=== PATIENT | male | born 1960 | race Caucasian/White ===

== ENCOUNTER 2017-07-02 08:20 | Inpatient (IN) | payer OTHER ==
[~2017-07-02] VITALS: Ht 167.6 cm; Wt 82.4 kg
[~2017-07-02 08:20] MED LIST: ACTOS45 MG PO; ALPRAZOLAM0.25 M2 PO; AMBIEN10 MG PO; CELEXA20 MG PO; CITALOPRAM HBR20 MG PO; DULCOLAX10 MG PR; ERGOCALCIF50000 UNIT PO; FAMOTIDINE20 MG PO; FLEET ENEMA-AD118 ML PR; FLORANEX CHE1 TABLET PO; FLORASTOR250 MG PO; GLUCOPHAGE1000 MG PO; HUMULIN 70100 UNIT/2 SC; HUMULIN 70100 UNIT/3 SC; LABETALOL HCL200 MG PO; LISINOPRIL2.5 MG PO; METRONIDAZOLE500 MG PO; NORMODYNE,TRAN200 MG PO; NOVOLOG PE100 UNITS/ SC; OXYCODONE-APAP1 EACH PO; PAIN RELIEF650 MG PO; PERCOCET 10/1 TABLET PO; PHILLIPS'400 MG/5 M PO; TRAMADOL HCL50 MG PO; TYLENOL REGULA325 MG PO; ULTRAM50 MG PO; VANCOCIN HCL125 MG PO; VITAMIN D50000 UNI4 PO; XANAX0.25 MG PO; ZESTRIL2.5 MG PO; ZOLPIDEM TARTRAT5 MG PO
[2017-07-02 08:55] LABS: HEMATOCRIT 31.9 % (38.0-50.0); MCH 30.3 PG (29.0-34.0); MCHC 33.5 G/DL (30.0-36.0); MCV 90.4 FL (86-99); MEAN PLAT.VOLUME 10.2 uM^3 (9.0-12.4); PLATELET COUNT 229 K/uL (156-360); RBC DIS.WIDTH-CV 13.9 % (11.8-14.6); RBC DIS.WIDTH-SD 46.4 % (39-53); RED BLOOD COUNT 3.53 M/uL (4.00-5.50); WHITE BLOOD COUNT 9.6 K/uL (4.1-10.2)
[2017-07-02 09:22] LABS: CHLORIDE 114 mEq/L (99-109); POTASSIUM 4.1 mEq/L (3.7-5.4); SODIUM 143 mEq/L (136-147)
[2017-07-02 09:25] LABS: GLUCOSE 204 mg/dL (70-99)
[2017-07-02 09:26] LABS: ANION GAP 9 MEQ/L (2-14)
[2017-07-02 09:27] LABS: TOTAL BILIRUBIN 0.6 mg/dL (0.0-1.0)
[2017-07-02 09:28] LABS: ALKALINE PHOSPHATASE 81 IU/L (3-129); GFR ESTIMATE (CALCULATED) 31 mL/min/
[2017-07-02 09:29] LABS: UREA NITROGEN (BUN) 42 mg/dL (9-23)
[2017-07-02 14:43] LABS: POINT-OF-CARE METER ID UU13113675
[2017-07-02 14:46] LABS: TOTAL CK 2645 IU/L (1-294)
[2017-07-02 14:49] LABS: CREATINE KINASE 2645 IU/L (1-294)
[2017-07-02 14:59] LABS: CK-MB 7.6 ng/mL (0.0-4.9)
[2017-07-02 16:33] LABS: POINT-OF-CARE METER ID UU14117124
[2017-07-02 16:38] VITALS: BP 102/74
[2017-07-02 19:52] VITALS: BP 119/62
[2017-07-02 22:02] LABS: POINT-OF-CARE METER ID UU14117124
[2017-07-03] VITALS (7 sets, daily range): BP systolic 109–141; BP diastolic 60–73
[2017-07-03 07:14] LABS: ANION GAP 7 MEQ/L (2-14); CHLORIDE 116 MEQ/L (99-109); GFR ESTIMATE (CALCULATED) 44 mL/min/; GLUCOSE 179 mg/dL (70-99); POTASSIUM 4.1 MEQ/L (3.7-5.4); SAMPLE HEMOLYSIS CHECK 0; SAMPLE ICTERIC CHECK 0; SAMPLE LIPEMIA CHECK 0; SODIUM 145 MEQ/L (136-147); UREA NITROGEN (BUN) 25 mg/dL (9-23)
[2017-07-03 10:52] LABS: CREATINE KINASE 2290 IU/L (1-294)
[2017-07-03 16:56] LABS: POINT-OF-CARE METER ID UU14117124
[2017-07-04 03:07] VITALS: BP 143/84
[2017-07-04 06:44] LABS: HEMATOCRIT 29.4 % (38.0-50.0); MCH 30.3 PG (29.0-34.0); MCHC 33.3 G/DL (30.0-36.0); MEAN PLAT.VOLUME 10.5 uM^3 (9.0-12.4); PLATELET COUNT 215 K/uL (156-360); RBC DIS.WIDTH-SD 47.2 % (39-53); RED BLOOD COUNT 3.23 M/uL (4.00-5.50); WHITE BLOOD COUNT 6.5 K/uL (4.1-10.2)
[2017-07-04 07:00] VITALS: BP 151/76
[2017-07-04 07:24] LABS: ANION GAP 7 MEQ/L (2-14); CHLORIDE 112 MEQ/L (99-109); CREATINE KINASE 1618 IU/L (1-294); GFR ESTIMATE (CALCULATED) 55 mL/min/; GLUCOSE 117 mg/dL (70-99); POTASSIUM 3.9 MEQ/L (3.7-5.4); SAMPLE HEMOLYSIS CHECK 0; SAMPLE ICTERIC CHECK 0; SAMPLE LIPEMIA CHECK 0; SODIUM 142 MEQ/L (136-147); UREA NITROGEN (BUN) 19 mg/dL (9-23)
[2017-07-04 07:55] LABS: ADD MIUA? YES; BILIRUBIN NEGATIVE; BLOOD MODERATE; COLOR YELLOW ((YELLOW)); GLUCOSE (STRIP) NEGATIVE; KETONES NEGATIVE; LEUKOCYTES NEGATIVE; NITRITE NEGATIVE; PROTEIN (STRIP) NEGATIVE; SPECIFIC GRAVITY 1.013 (1.000-1.030); UROBILINOGEN 0.2 MG/DL (0.2-1.0)
[2017-07-04 08:08] LABS: BACTERIA NONE SEEN /HPF; EPITHELIAL CELLS NONE SEEN /HPF; MUCUS NONE SEEN /LPF; RED BLOOD CELLS 0-5 /HPF (0-5); WHITE BLOOD CELLS 0-5 /HPF (0-5)
[2017-07-04] MEDS ORDERED: MORPHINE SULFAT15 M1 PO (14:08)
[2017-07-04] MEDS ORDERED: GABAPENTIN300 MG PO (14:08)
[2017-07-04] MEDS ORDERED: LABETALOL HCL200 MG PO (14:09)
[2017-07-04] MEDS ORDERED: OXYCODONE HCL15 MG PO (14:09)
[2017-07-04] MEDS ORDERED: AMARYL1 MG PO (14:10)
[2017-07-04 15:23] VITALS: BP 131/73
[2017-07-04 21:39] LABS: POINT-OF-CARE METER ID UU14208753
[2017-07-04 23:46] VITALS: BP 148/82
[2017-07-05 06:08] LABS: HEMATOCRIT 26.9 % (38.0-50.0); MCV 89.4 FL (86-99)
[2017-07-05 06:36] LABS: POINT-OF-CARE METER ID UU14188577
[2017-07-05 06:43] LABS: ANION GAP 7 MEQ/L (2-14); CHLORIDE 110 MEQ/L (99-109); CREATINE KINASE 947 IU/L (1-294); GFR ESTIMATE (CALCULATED) > 59 mL/min/; GLUCOSE 114 mg/dL (70-99); POTASSIUM 3.8 MEQ/L (3.7-5.4); SAMPLE HEMOLYSIS CHECK 0; SAMPLE ICTERIC CHECK 0; SAMPLE LIPEMIA CHECK 0; SODIUM 142 MEQ/L (136-147); UREA NITROGEN (BUN) 13 mg/dL (9-23)
[2017-07-05 07:36] VITALS: BP 141/80
[2017-07-05 11:42] LABS: POINT-OF-CARE METER ID UU14117124
[2017-07-05 15:44] VITALS: BP 143/66
[2017-07-05 16:23] LABS: POINT-OF-CARE METER ID UU14208753
[2017-07-05 19:28] VITALS: BP 127/73
[2017-07-05 21:54] LABS: POINT-OF-CARE METER ID UU14188577
[2017-07-05 23:10] VITALS: BP 126/79
[2017-07-06 03:41] VITALS: BP 133/82
[2017-07-06 07:10] LABS: HEMATOCRIT 29.5 % (38.0-50.0); MCH 31.1 PG (29.0-34.0); MCHC 33.9 G/DL (30.0-36.0); MCV 91.6 FL (86-99); MEAN PLAT.VOLUME 10.2 uM^3 (9.0-12.4); PLATELET COUNT 259 K/uL (156-360); RBC DIS.WIDTH-CV 14.1 % (11.8-14.6); RBC DIS.WIDTH-SD 47.8 % (39-53); RED BLOOD COUNT 3.22 M/uL (4.00-5.50); WHITE BLOOD COUNT 5.4 K/uL (4.1-10.2)
[2017-07-06 08:50] VITALS: BP 127/79
[2017-07-06] MEDS ORDERED: CITALOPRAM HBR10 MG PO (11:37)
[2017-07-06] MEDS ORDERED: NICOTINE PATCH1 EAC1 TD (11:37)
[2017-07-06] MEDS ORDERED: LOVENOX40 MG/0.4 SC (11:42)
[2017-07-06 16:37] VITALS: BP 116/75
== END 2017-07-06 18:37 | DRG 560 ==
LOC: EME 08:20 → EDOF 13:06 → 3EAST 13:06 → ENRESERV 13:15 → 3EAST 15:24
PROVIDERS: Hospitalist; Internal Medicine; Nurse Practitioner Family; Physician Assistant
PROC: 0SW9XJZ Revision of Synthetic Substitute in Right Hip Joint, External Approach (ICD-10-PCS; principal; 2017-07-02)
DX: T84.020A Dislocation of internal right hip prosthesis, initial encounter (principal); N17.9 Acute kidney failure, unspecified; M62.82 Rhabdomyolysis; W01.0XXA Fall on same level from slipping, tripping and stumbling without subsequent striking against object, initial encounter; Y92.008 Other place in unspecified non-institutional (private) residence as the place of occurrence of the external cause; I12.9 Hypertensive chronic kidney disease with stage 1 through stage 4 chronic kidney disease, or unspecified chronic kidney disease; N18.3 Chronic kidney disease, stage 3 (moderate); E11.22 Type 2 diabetes mellitus with diabetic chronic kidney disease; D64.9 Anemia, unspecified; F41.8 Other specified anxiety disorders; F31.9 Bipolar disorder, unspecified; J44.9 Chronic obstructive pulmonary disease, unspecified; K21.9 Gastro-esophageal reflux disease without esophagitis; G89.29 Other chronic pain; G40.909 Epilepsy, unspecified, not intractable, without status epilepticus; K59.00 Constipation, unspecified; D35.01 Benign neoplasm of right adrenal gland; F19.10 Other psychoactive substance abuse, uncomplicated; K64.8 Other hemorrhoids; Z96.641 Presence of right artificial hip joint; Z79.891 Long term (current) use of opiate analgesic
CPT/HCPCS: 70450; 71010; 73501; 73522; 74176; 76000; 80048; 80053; 81003; 82550; 82553; 82948; 85014; 85018; 85027; 93005; 97530 GO; 99281; 99285; J1644; J1815; J2270; J2405; J7030; J7120; S0028

== ENCOUNTER 2017-07-31 16:37 | Inpatient (IN) | payer OTHER ==
[~2017-07-31] VITALS: Ht 167.6 cm; Wt 82.3 kg
[~2017-07-31 16:37] MED LIST changes: +AMARYL1 MG PO; +CITALOPRAM HBR10 MG PO; +GABAPENTIN300 MG PO; +LOVENOX40 MG/0.4 SC; +MORPHINE SULFAT15 M1 PO; +NICOTINE PATCH1 EAC1 TD; +OXYCODONE HCL15 MG PO
[2017-07-31 17:09] LABS: POINT-OF-CARE METER ID UU13113702
[2017-07-31 19:14] LABS: HEMATOCRIT 30.7 % (38.0-50.0); MCH 30.1 PG (29.0-34.0); MCHC 32.6 G/DL (30.0-36.0); MCV 92.5 FL (86-99); MEAN PLAT.VOLUME 10.5 uM^3 (9.0-12.4); PLATELET COUNT 237 K/uL (156-360); RBC DIS.WIDTH-CV 15.2 % (11.8-14.6); RED BLOOD COUNT 3.32 M/uL (4.00-5.50); WHITE BLOOD COUNT 6.9 K/uL (4.1-10.2)
[2017-07-31 19:25] LABS: CHLORIDE 115 mEq/L (99-109); POTASSIUM 4.7 mEq/L (3.7-5.4); SODIUM 144 mEq/L (136-147)
[2017-07-31 19:27] LABS: GLUCOSE 114 mg/dL (70-99)
[2017-07-31 19:28] LABS: ANION GAP 12 MEQ/L (2-14)
[2017-07-31 19:30] LABS: SERUM ETHYL ALCOHOL < 10 mg/dL
[2017-07-31 19:31] LABS: GFR ESTIMATE (CALCULATED) 11 mL/min/
[2017-07-31 19:33] LABS: UREA NITROGEN (BUN) 89 mg/dL (9-23)
[2017-07-31 19:34] LABS: SALICYLATE < 5.0 MG/DL (15-30)
[2017-07-31 19:47] LABS: POINT-OF-CARE METER ID UU13113702
[2017-07-31 20:51] LABS: POINT-OF-CARE METER ID UU13113702
[2017-07-31 22:21] LABS: CREATINE KINASE 2870 IU/L (1-294)
[2017-07-31 22:50] LABS: POINT-OF-CARE METER ID UU13113702
[2017-08-01] VITALS (7 sets, daily range): BP systolic 116–169; BP diastolic 69–97
[2017-08-01 00:37] LABS: CHLORIDE 116 mEq/L (99-109); POTASSIUM 4.4 mEq/L (3.7-5.4); SODIUM 144 mEq/L (136-147)
[2017-08-01 00:39] LABS: GLUCOSE 100 mg/dL (70-99)
[2017-08-01 00:40] LABS: ANION GAP 11 MEQ/L (2-14)
[2017-08-01 00:41] LABS: TOTAL BILIRUBIN 0.5 mg/dL (0.0-1.0)
[2017-08-01 00:42] LABS: ALKALINE PHOSPHATASE 82 IU/L (3-129)
[2017-08-01 00:43] LABS: GFR ESTIMATE (CALCULATED) 12 mL/min/
[2017-08-01 00:44] LABS: DIRECT BILIRUBIN 0.2 mg/dL (0.0-0.3); UREA NITROGEN (BUN) 79 mg/dL (9-23)
[2017-08-01 00:46] LABS: URIC ACID 11.6 mg/dL (3.1-9.2)
[2017-08-01 00:55] LABS: POINT-OF-CARE METER ID UU14314088
[2017-08-01 00:56] LABS: TROP-I INTERPRETATION NEGATIVE; TROPONIN-I 0.02 ng/mL (0.0-0.30)
[2017-08-01 01:11] LABS: ADD MIUA? YES; BILIRUBIN NEGATIVE; BLOOD MODERATE; COLOR YELLOW ((YELLOW)); GLUCOSE (STRIP) NEGATIVE; KETONES NEGATIVE; LEUKOCYTES NEGATIVE; NITRITE NEGATIVE; PROTEIN (STRIP) NEGATIVE; SPECIFIC GRAVITY 1.012 (1.000-1.030); UROBILINOGEN 0.2 MG/DL (0.2-1.0)
[2017-08-01 01:15] LABS: BACTERIA 1+ /HPF; EPITHELIAL CELLS RARE /HPF; MUCUS TRACE /LPF; RED BLOOD CELLS 0-5 /HPF (0-5); UCUL ADDED? NO; WHITE BLOOD CELLS 0-5 /HPF (0-5)
[2017-08-01 01:55] LABS: BASE EXCESS -7.2 mEq/L (-3 to +3); BICARBONATE 18.8 mEq/L (22-26); CARBOXY HGB 1.4 % (0-5); COMMENTS - BLOOD GASES C+A+; METHEMOGLOBIN 1.2 % (0-1.5); PCO2 39 mm Hg (35-45); PO2 70 mm Hg (80-100); SITE RR
[2017-08-01 01:56] LABS: DEVICE ROOM AIR; TOTAL RESP RATE 16 resp/min; pH 7.29 (7.35-7.45)
[2017-08-01 02:13] LABS: POINT-OF-CARE METER ID UU14314088
[2017-08-01 02:35] LABS: AMPHETAMINES QUANT VALUE 0 NG/ML; BARBITUATES QUANT VALUE 0 NG/ML; BENZODIAZEPINES QUANT VALUE 0 NG/ML; BENZODIAZEPINES, URINE SCREEN Negative (200 ng/mL); MARIJUANA QUANT VALUE 0 NG/ML; PHENCYCLIDINE QUANT VALUE 0 NG/ML
[2017-08-01 04:39] LABS: POINT-OF-CARE METER ID UU14314088
[2017-08-01 05:35] LABS: HEMATOCRIT 27.7 % (38.0-50.0); MCH 31.6 PG (29.0-34.0); MCHC 33.2 G/DL (30.0-36.0); MCV 95.2 FL (86-99); MEAN PLAT.VOLUME 10.6 uM^3 (9.0-12.4); PLATELET COUNT 220 K/uL (156-360); RBC DIS.WIDTH-CV 15.4 % (11.8-14.6); RBC DIS.WIDTH-SD 53.8 % (39-53); RED BLOOD COUNT 2.91 M/uL (4.00-5.50); WHITE BLOOD COUNT 5.9 K/uL (4.1-10.2)
[2017-08-01 06:21] LABS: ANION GAP 12 MEQ/L (2-14); CHLORIDE 117 MEQ/L (99-109); GFR ESTIMATE (CALCULATED) 14 mL/min/; GLUCOSE 73 mg/dL (70-99); POTASSIUM 4.5 MEQ/L (3.7-5.4); SAMPLE HEMOLYSIS CHECK 0; SAMPLE ICTERIC CHECK 0; SAMPLE LIPEMIA CHECK 0; SODIUM 147 MEQ/L (136-147); UREA NITROGEN (BUN) 76 mg/dL (9-23)
[2017-08-01 06:25] LABS: CREATINE KINASE 1666 IU/L (1-294)
[2017-08-01 06:33] LABS: POINT-OF-CARE METER ID UU14314088
[2017-08-01 06:54] LABS: POINT-OF-CARE METER ID UU13113698
[2017-08-01 07:14] LABS: POINT-OF-CARE METER ID UU14314088
[2017-08-01 07:32] LABS: POINT-OF-CARE METER ID UU14174216
[2017-08-01 08:20] LABS: POINT-OF-CARE METER ID UU14174216; POINT-OF-CARE USER ID ENVKC36
[2017-08-01 10:23] LABS: POINT-OF-CARE METER ID UU14174216; POINT-OF-CARE USER ID ENVKC36
[2017-08-01 12:26] LABS: POINT-OF-CARE METER ID UU14314088; POINT-OF-CARE USER ID ENVKC36
[2017-08-01 12:33] LABS: POINT-OF-CARE METER ID UU13113702
[2017-08-01 14:27] LABS: POINT-OF-CARE METER ID UU14174216; POINT-OF-CARE USER ID ENVKC36
[2017-08-01 18:13] LABS: POINT-OF-CARE METER ID UU14174216
[2017-08-02 00:29] LABS: POINT-OF-CARE METER ID UU14174216
[2017-08-02 04:01] VITALS: BP 160/84
[2017-08-02 05:44] LABS: BASOPHIL COUNT 0.1 K/uL (0-0.1); EOSINOPHIL COUNT 0.3 K/uL (0-0.3); IMMATURE GRANULOCYTE (%) 0.2 % (0.0-0.7); INSTRUMENT ABS NEUTROPHIL CT 2.6 K/uL; LYMPHOCYTE COUNT 1.8 K/uL (1.0-2.8); MCH 29.9 PG (29.0-34.0); MCHC 32.2 G/DL (30.0-36.0); MCV 92.8 FL (86-99); MEAN PLAT.VOLUME 10.7 uM^3 (9.0-12.4); MONOCYTE (%) 10.4 % (3-12); MONOCYTE COUNT 0.6 K/uL (0-0.8); NEUTROPHIL (%) 48.8 % (45-76); NEUTROPHIL COUNT 2.6 K/uL (1.8-6.4); PLATELET COUNT 216 K/uL (156-360); RBC DIS.WIDTH-CV 15.1 % (11.8-14.6); RBC DIS.WIDTH-SD 50.9 % (39-53); RED BLOOD COUNT 2.91 M/uL (4.00-5.50); WHITE BLOOD COUNT 5.4 K/uL (4.1-10.2)
[2017-08-02 06:06] LABS: POINT-OF-CARE METER ID UU14174216
[2017-08-02 06:36] LABS: ALKALINE PHOSPHATASE 57 IU/L (3-129); ANION GAP 8 MEQ/L (2-14); CHLORIDE 117 MEQ/L (99-109); CREATINE KINASE 746 IU/L (1-294); GFR ESTIMATE (CALCULATED) 18 mL/min/; MAGNESIUM 1.9 mg/dl (1.3-2.7); POTASSIUM 4.3 MEQ/L (3.7-5.4); SAMPLE HEMOLYSIS CHECK 0; SAMPLE ICTERIC CHECK 0; SAMPLE LIPEMIA CHECK 0; SODIUM 146 MEQ/L (136-147); TOTAL BILIRUBIN 0.7 MG/DL (0.0-1.0); UREA NITROGEN (BUN) 64 mg/dL (9-23)
[2017-08-02 06:37] LABS: GLUCOSE 128 mg/dL (70-99)
[2017-08-02 07:05] VITALS: BP 163/81
[2017-08-02 11:12] VITALS: BP 145/85
[2017-08-02 15:30] VITALS: BP 160/89
[2017-08-02 16:20] LABS: POINT-OF-CARE METER ID UU14314088
[2017-08-02 19:27] VITALS: BP 169/81
[2017-08-02 21:09] LABS: POINT-OF-CARE METER ID UU14174216
[2017-08-02 23:45] VITALS: BP 143/77
[2017-08-03 03:28] VITALS: BP 162/78
[2017-08-03 05:45] LABS: BASOPHIL COUNT 0.1 K/uL (0-0.1); EOSINOPHIL (%) 3.3 % (0-5); EOSINOPHIL COUNT 0.2 K/uL (0-0.3); IMMATURE GRANULOCYTE (%) 0.4 % (0.0-0.7); INSTRUMENT ABS NEUTROPHIL CT 3.2 K/uL; LYMPHOCYTE COUNT 1.4 K/uL (1.0-2.8); MCHC 35.6 G/DL (30.0-36.0); MEAN PLAT.VOLUME 10.5 uM^3 (9.0-12.4); MONOCYTE (%) 11.1 % (3-12); MONOCYTE COUNT 0.6 K/uL (0-0.8); NEUTROPHIL COUNT 3.2 K/uL (1.8-6.4); PLATELET COUNT 220 K/uL (156-360); RBC DIS.WIDTH-CV 14.6 % (11.8-14.6); WHITE BLOOD COUNT 5.5 K/uL (4.1-10.2)
[2017-08-03 06:16] LABS: ANION GAP 11 MEQ/L (2-14); CHLORIDE 112 MEQ/L (99-109); CREATINE KINASE 356 IU/L (1-294); GFR ESTIMATE (CALCULATED) 27 mL/min/; GLUCOSE 217 mg/dL (70-99); POTASSIUM 3.7 MEQ/L (3.7-5.4); SAMPLE HEMOLYSIS CHECK 0; SAMPLE ICTERIC CHECK 0; SAMPLE LIPEMIA CHECK 0; SODIUM 146 MEQ/L (136-147); UREA NITROGEN (BUN) 44 mg/dL (9-23)
[2017-08-03 07:25] VITALS: BP 150/82
[2017-08-03 07:44] LABS: POINT-OF-CARE METER ID UU14174216
[2017-08-03 11:10] VITALS: BP 140/80
[2017-08-03 11:34] LABS: POINT-OF-CARE METER ID UU14314088
[2017-08-03 16:02] VITALS: BP 160/80
[2017-08-03 16:06] LABS: POINT-OF-CARE METER ID UU14314088
[2017-08-03 20:30] VITALS: BP 150/80
[2017-08-03 21:34] LABS: POINT-OF-CARE METER ID UU13113781
[2017-08-04] VITALS (7 sets, daily range): BP systolic 125–176; BP diastolic 76–87
[2017-08-04 05:29] LABS: BASOPHIL COUNT 0.1 K/uL (0-0.1); EOSINOPHIL COUNT 0.2 K/uL (0-0.3); HEMATOCRIT 29.2 % (38.0-50.0); IMMATURE GRANULOCYTE (%) 0.3 % (0.0-0.7); INSTRUMENT ABS NEUTROPHIL CT 4.7 K/uL; LYMPHOCYTE COUNT 1.9 K/uL (1.0-2.8); MCH 31.1 PG (29.0-34.0); MCHC 34.6 G/DL (30.0-36.0); MCV 89.8 FL (86-99); MEAN PLAT.VOLUME 10.6 uM^3 (9.0-12.4); MONOCYTE (%) 9.3 % (3-12); MONOCYTE COUNT 0.7 K/uL (0-0.8); NEUTROPHIL (%) 61.9 % (45-76); NEUTROPHIL COUNT 4.7 K/uL (1.8-6.4); PLATELET COUNT 233 K/uL (156-360); RBC DIS.WIDTH-CV 14.1 % (11.8-14.6); RED BLOOD COUNT 3.25 M/uL (4.00-5.50); WHITE BLOOD COUNT 7.5 K/uL (4.1-10.2)
[2017-08-04 05:55] LABS: ANION GAP 13 MEQ/L (2-14); CHLORIDE 106 MEQ/L (99-109); GFR ESTIMATE (CALCULATED) 35 mL/min/; GLUCOSE 138 mg/dL (70-99); POTASSIUM 3.7 MEQ/L (3.7-5.4); SAMPLE HEMOLYSIS CHECK 0; SAMPLE ICTERIC CHECK 0; SAMPLE LIPEMIA CHECK 0; SODIUM 143 MEQ/L (136-147); UREA NITROGEN (BUN) 34 mg/dL (9-23)
[2017-08-04 08:32] LABS: POINT-OF-CARE METER ID UU14174216
[2017-08-04 11:52] LABS: POINT-OF-CARE METER ID UU14314088
[2017-08-04 16:15] LABS: POINT-OF-CARE METER ID UU14314088
[2017-08-04 21:20] LABS: POINT-OF-CARE METER ID UU14188577
[2017-08-05 00:31] VITALS: BP 133/76
[2017-08-05 04:22] VITALS: BP 142/82
[2017-08-05 06:07] LABS: POINT-OF-CARE METER ID UU14188577
[2017-08-05 06:29] LABS: BASOPHIL COUNT 0.1 K/uL (0-0.1); EOSINOPHIL (%) 3.4 % (0-5); EOSINOPHIL COUNT 0.3 K/uL (0-0.3); HEMATOCRIT 29.8 % (38.0-50.0); IMMATURE GRANULOCYTE (%) 0.4 % (0.0-0.7); INSTRUMENT ABS NEUTROPHIL CT 4.1 K/uL; LYMPHOCYTE COUNT 2.3 K/uL (1.0-2.8); MCH 31.3 PG (29.0-34.0); MCHC 34.9 G/DL (30.0-36.0); MCV 89.8 FL (86-99); MEAN PLAT.VOLUME 10.8 uM^3 (9.0-12.4); MONOCYTE (%) 7.9 % (3-12); MONOCYTE COUNT 0.6 K/uL (0-0.8); NEUTROPHIL (%) 56.2 % (45-76); NEUTROPHIL COUNT 4.1 K/uL (1.8-6.4); PLATELET COUNT 222 K/uL (156-360); RBC DIS.WIDTH-SD 45.3 % (39-53); RED BLOOD COUNT 3.32 M/uL (4.00-5.50); WHITE BLOOD COUNT 7.4 K/uL (4.1-10.2)
[2017-08-05 06:56] LABS: ANION GAP 10 MEQ/L (2-14); CHLORIDE 106 MEQ/L (99-109); GFR ESTIMATE (CALCULATED) 37 mL/min/; GLUCOSE 166 mg/dL (70-99); POTASSIUM 4.1 MEQ/L (3.7-5.4); SAMPLE HEMOLYSIS CHECK 0; SAMPLE ICTERIC CHECK 0; SAMPLE LIPEMIA CHECK 0; SODIUM 141 MEQ/L (136-147); UREA NITROGEN (BUN) 35 mg/dL (9-23)
[2017-08-05 07:53] VITALS: BP 143/85
[2017-08-05 11:45] LABS: POINT-OF-CARE METER ID UU14208753
== END 2017-08-05 13:40 | disposition home health service (06) | DRG 917 ==
LOC: EME 16:37 → 4EAST 23:14 → EDOF 23:14 → ENRESERV 23:19 → 4EAST 08-01 00:23 → ENRESERV 08-04 15:57 → 3EAST 08-04 17:16
PROVIDERS: Emergency Medicine; Hospitalist; Internal Medicine; Internal Medicine Nephrology
DX: T40.2X1A Poisoning by other opioids, accidental (unintentional), initial encounter (principal); N17.9 Acute kidney failure, unspecified; M62.82 Rhabdomyolysis; F31.9 Bipolar disorder, unspecified; E87.2 Acidosis; G40.909 Epilepsy, unspecified, not intractable, without status epilepticus; F11.20 Opioid dependence, uncomplicated; F17.200 Nicotine dependence, unspecified, uncomplicated; E11.649 Type 2 diabetes mellitus with hypoglycemia without coma; J44.9 Chronic obstructive pulmonary disease, unspecified; G92 Toxic encephalopathy; E86.0 Dehydration; D64.9 Anemia, unspecified; I12.9 Hypertensive chronic kidney disease with stage 1 through stage 4 chronic kidney disease, or unspecified chronic kidney disease; E11.22 Type 2 diabetes mellitus with diabetic chronic kidney disease; N18.3 Chronic kidney disease, stage 3 (moderate); G89.29 Other chronic pain; Z96.641 Presence of right artificial hip joint; R29.6 Repeated falls; K21.9 Gastro-esophageal reflux disease without esophagitis
CPT/HCPCS: 36600; 70450; 71250; 74176; 76770; 80048; 80048 91; 80053; 80076; 80306 90; 81003; 82436; 82550; 82803; 82948; 83735; 83935; 84100; 84133; 84300; 84484; 84550; 85025; 85027; 90686; 93005; 97530 GP; 99281; 99285; G0480; J1644; J1815; J2310; J7030; J7040; J7042

== ENCOUNTER 2017-09-10 13:47 | Inpatient (IN) | payer OTHER ==
[2017-09-10] VITALS (8 sets, daily range): BP systolic 106–158; BP diastolic 76–101
[~2017-09-10] VITALS: Ht 167.6 cm; Wt 94.2 kg
[~2017-09-10 13:47] MED LIST changes: +AUGMENTIN875 MG PO; +GLIMEPIRIDE2 MG PO
[2017-09-10 14:28] LABS: HEMATOCRIT 39.9 % (38.0-50.0); MCH 30.7 PG (29.0-34.0); MCHC 32.6 G/DL (30.0-36.0); MEAN PLAT.VOLUME 9.9 uM^3 (9.0-12.4); PLATELET COUNT 352 K/uL (156-360); RBC DIS.WIDTH-CV 14.9 % (11.8-14.6); WHITE BLOOD COUNT 13.3 K/uL (4.1-10.2)
[2017-09-10 14:34] LABS: CHLORIDE 113 mEq/L (99-109); SODIUM 143 mEq/L (136-147)
[2017-09-10 14:36] LABS: GLUCOSE 221 mg/dL (70-99)
[2017-09-10 14:37] LABS: ANION GAP 18 MEQ/L (2-14)
[2017-09-10 14:40] LABS: GFR ESTIMATE (CALCULATED) 15 mL/min/
[2017-09-10 14:41] LABS: UREA NITROGEN (BUN) 73 mg/dL (9-23)
[2017-09-10 14:43] LABS: MCV 94.3 FL (86-99); RED BLOOD COUNT 4.23 M/uL (4.00-5.50)
[2017-09-10 14:50] LABS: ANION GAP 15 MEQ/L (2-14); CHLORIDE 117 mEq/L (99-109); CREATININE 4.5 mg/dL (0.6-1.3); GLUCOSE 202 mg/dL (70-99); ISTAT DEVICE 359068; POTASSIUM > 6.0 mEq/L (3.7-5.4); SODIUM 141 mEq/L (136-147); UREA NITROGEN (BUN) 72 mg/dL (9-23)
[2017-09-10 14:50] LABS: ANION GAP 17 MEQ/L (2-14); CHLORIDE 118 mEq/L (99-109); CREATININE 4.6 mg/dL (0.6-1.3); GLUCOSE 204 mg/dL (70-99); ISTAT DEVICE 359068; POTASSIUM > 6.0 mEq/L (3.7-5.4); SODIUM 143 mEq/L (136-147); UREA NITROGEN (BUN) 74 mg/dL (9-23)
[2017-09-10 15:03] LABS: POTASSIUM 6.8 mEq/L (3.7-5.4)
[2017-09-10 15:26] LABS: CARBON DIOXIDE (BICARBONATE) 16.5 MEQ/L (20-31)
[2017-09-10 15:34] LABS: POTASSIUM ND MEQ/L (3.7-5.4)
[2017-09-10 15:34] LABS: POTASSIUM ND MEQ/L (3.7-5.4)
[2017-09-10 15:53] LABS: ADD MIUA? YES; BILIRUBIN NEGATIVE; BLOOD LARGE; COLOR YELLOW ((YELLOW)); GLUCOSE (STRIP) NEGATIVE; KETONES 5; LEUKOCYTES NEGATIVE; NITRITE NEGATIVE; PROTEIN (STRIP) 30; SPECIFIC GRAVITY 1.015 (1.000-1.030); UROBILINOGEN 0.2 MG/DL (0.2-1.0)
[2017-09-10 16:11] LABS: CREATINE KINASE 23640 IU/L (1-294)
[2017-09-10 16:14] LABS: AMORPHOUS URATES CRYSTALS 4+; BACTERIA RARE /HPF; CALCIUM OXALATE CRYSTALS FEW /HPF; CASTS NONE SEEN /LPF; CRYSTALS PRESENT; EPITHELIAL CELLS NONE SEEN /HPF; MUCUS NONE SEEN /LPF; RED BLOOD CELLS 0-5 /HPF (0-5); UCUL ADDED? NO; WHITE BLOOD CELLS 0-5 /HPF (0-5)
[2017-09-10] MEDS ORDERED: NALOXONE HC1 MG/1 ML IM (16:32)
[2017-09-10] MEDS ORDERED: OXYCODONE HCL5 MG PO (16:32)
[2017-09-10 19:12] LABS: METH RESISTANT S AUREUS PCR NEGATIVE (NEGATIVE)
[2017-09-10 19:13] LABS: PROBE CHECK PASS; SPECIMEN PROCESSING CONTROL PASS
[2017-09-10 23:48] LABS: CHLORIDE 119 mEq/L (99-109); SODIUM 143 mEq/L (136-147)
[2017-09-10 23:49] LABS: MAGNESIUM 2.4 mg/dL (1.3-2.7)
[2017-09-10 23:50] LABS: GLUCOSE 192 mg/dL (70-99)
[2017-09-10 23:51] LABS: ANION GAP 14 MEQ/L (2-14)
[2017-09-10 23:54] LABS: GFR ESTIMATE (CALCULATED) 15 mL/min/
[2017-09-10 23:55] LABS: UREA NITROGEN (BUN) 75 mg/dL (9-23)
[2017-09-11] VITALS (21 sets, daily range): BP systolic 99–148; BP diastolic 74–100
[2017-09-11 00:59] LABS: POTASSIUM 6.8 mEq/L (3.7-5.4)
[2017-09-11 01:06] LABS: CK-MB 173.3 ng/mL (0.0-4.9); CREATINE KINASE 26941 IU/L (1-294)
[2017-09-11 06:02] LABS: ANION GAP 14 MEQ/L (2-14); CHLORIDE 119 MEQ/L (99-109); GFR ESTIMATE (CALCULATED) 14 mL/min/; GLUCOSE 184 mg/dL (70-99); SAMPLE HEMOLYSIS CHECK 0; SAMPLE ICTERIC CHECK 0; SAMPLE LIPEMIA CHECK 0; SODIUM 145 MEQ/L (136-147); UREA NITROGEN (BUN) 79 mg/dL (9-23)
[2017-09-11 06:37] LABS: CREATINE KINASE 17400 IU/L (1-294)
[2017-09-11 08:45] LABS: BASOPHIL COUNT 0.1 K/uL (0-0.1); EOSINOPHIL (%) 0.3 % (0-5); HEMATOCRIT 32.1 % (38.0-50.0); IMMATURE GRANULOCYTE (%) 0.3 % (0.0-0.7); INSTRUMENT ABS NEUTROPHIL CT 7.1 K/uL; MCH 31.7 PG (29.0-34.0); MCHC 33.3 G/DL (30.0-36.0); MEAN PLAT.VOLUME 10.1 uM^3 (9.0-12.4); MONOCYTE (%) 11.8 % (3-12); MONOCYTE COUNT 1.1 K/uL (0-0.8); NEUTROPHIL (%) 76.6 % (45-76); NEUTROPHIL COUNT 7.1 K/uL (1.8-6.4); PLATELET COUNT 262 K/uL (156-360); RBC DIS.WIDTH-CV 15.1 % (11.8-14.6); RBC DIS.WIDTH-SD 53.2 % (39-53); RED BLOOD COUNT 3.38 M/uL (4.00-5.50); WHITE BLOOD COUNT 9.3 K/uL (4.1-10.2)
[2017-09-11 14:23] LABS: ANION GAP 14 MEQ/L (2-14); CHLORIDE 116 MEQ/L (99-109); GFR ESTIMATE (CALCULATED) 14 mL/min/; GLUCOSE 203 mg/dL (70-99); MAGNESIUM 2.3 mg/dl (1.3-2.7); POTASSIUM 5.7 MEQ/L (3.7-5.4); SAMPLE HEMOLYSIS CHECK 0; SAMPLE ICTERIC CHECK 0; SAMPLE LIPEMIA CHECK 0; SODIUM 145 MEQ/L (136-147); TOTAL CK 16650 IU/L (1-294); UREA NITROGEN (BUN) 86 mg/dL (9-23)
[2017-09-11 14:24] LABS: CREATINE KINASE 16650 IU/L (1-294)
[2017-09-11 14:44] LABS: CK-MB 77.3 ng/mL (0.0-4.9)
[2017-09-11 17:19] LABS: POINT-OF-CARE METER ID UU13113675
[2017-09-11 20:16] LABS: ANION GAP 13 MEQ/L (2-14); CHLORIDE 116 MEQ/L (99-109); GFR ESTIMATE (CALCULATED) 13 mL/min/; GLUCOSE 206 mg/dL (70-99); SAMPLE HEMOLYSIS CHECK 0; SAMPLE ICTERIC CHECK 0; SAMPLE LIPEMIA CHECK 0; SODIUM 144 MEQ/L (136-147); UREA NITROGEN (BUN) 84 mg/dL (9-23)
[2017-09-11 20:19] LABS: POTASSIUM 6.1 MEQ/L (3.7-5.4)
[2017-09-11 23:51] LABS: POINT-OF-CARE METER ID UU14314082; POINT-OF-CARE USER ID PHATLC
[2017-09-12] VITALS (16 sets, daily range): BP systolic 104–138; BP diastolic 63–103
[2017-09-12 04:15] LABS: UR CREATININE CONCENTRATION 49.1 MG/DL
[2017-09-12 05:41] LABS: BASOPHIL COUNT 0.1 K/uL (0-0.1); EOSINOPHIL (%) 1.6 % (0-5); EOSINOPHIL COUNT 0.1 K/uL (0-0.3); HEMATOCRIT 26.5 % (38.0-50.0); IMMATURE GRANULOCYTE (%) 0.2 % (0.0-0.7); INSTRUMENT ABS NEUTROPHIL CT 6.1 K/uL; LYMPHOCYTE COUNT 1.2 K/uL (1.0-2.8); MCH 30.6 PG (29.0-34.0); MCHC 32.8 G/DL (30.0-36.0); MCV 93.3 FL (86-99); MEAN PLAT.VOLUME 10.3 uM^3 (9.0-12.4); MONOCYTE (%) 10.7 % (3-12); MONOCYTE COUNT 0.9 K/uL (0-0.8); NEUTROPHIL (%) 72.4 % (45-76); NEUTROPHIL COUNT 6.1 K/uL (1.8-6.4); PLATELET COUNT 225 K/uL (156-360); RBC DIS.WIDTH-CV 14.9 % (11.8-14.6); RBC DIS.WIDTH-SD 51.5 % (39-53); RED BLOOD COUNT 2.84 M/uL (4.00-5.50); WHITE BLOOD COUNT 8.5 K/uL (4.1-10.2)
[2017-09-12 06:20] LABS: ANION GAP 11 MEQ/L (2-14); CHLORIDE 115 MEQ/L (99-109); GFR ESTIMATE (CALCULATED) 11 mL/min/; GLUCOSE 158 mg/dL (70-99); POTASSIUM 5.3 MEQ/L (3.7-5.4); SAMPLE HEMOLYSIS CHECK 0; SAMPLE ICTERIC CHECK 0; SAMPLE LIPEMIA CHECK 0; SODIUM 144 MEQ/L (136-147); UREA NITROGEN (BUN) 87 mg/dL (9-23)
[2017-09-12 12:01] LABS: POINT-OF-CARE METER ID UU14314083
[2017-09-12 12:58] LABS: ANION GAP 12 MEQ/L (2-14); CHLORIDE 117 MEQ/L (99-109); GFR ESTIMATE (CALCULATED) 10 mL/min/; GLUCOSE 130 mg/dL (70-99); POTASSIUM 5.3 MEQ/L (3.7-5.4); SAMPLE HEMOLYSIS CHECK 0; SAMPLE ICTERIC CHECK 0; SAMPLE LIPEMIA CHECK 0; SODIUM 146 MEQ/L (136-147); UREA NITROGEN (BUN) 93 mg/dL (9-23)
[2017-09-12 17:00] LABS: POINT-OF-CARE METER ID UU14314083
[2017-09-12 18:37] LABS: POINT-OF-CARE METER ID UU13113675
[2017-09-12 20:08] LABS: ANION GAP 13 MEQ/L (2-14); CHLORIDE 116 MEQ/L (99-109); POTASSIUM 5.6 MEQ/L (3.7-5.4); SAMPLE HEMOLYSIS CHECK 0; SAMPLE ICTERIC CHECK 0; SAMPLE LIPEMIA CHECK 0; SODIUM 145 MEQ/L (136-147)
[2017-09-12 20:15] LABS: GFR ESTIMATE (CALCULATED) 9 mL/min/; GLUCOSE 116 mg/dL (70-99); UREA NITROGEN (BUN) 86 mg/dL (9-23)
[2017-09-13] VITALS (18 sets, daily range): BP systolic 85–133; BP diastolic 53–97
[2017-09-13 06:07] LABS: BASOPHIL COUNT 0.1 K/uL (0-0.1); EOSINOPHIL (%) 3.7 % (0-5); EOSINOPHIL COUNT 0.3 K/uL (0-0.3); HEMATOCRIT 25.8 % (38.0-50.0); IMMATURE GRANULOCYTE (%) 0.3 % (0.0-0.7); INSTRUMENT ABS NEUTROPHIL CT 4.7 K/uL; MCH 31.9 PG (29.0-34.0); MCHC 32.6 G/DL (30.0-36.0); MCV 98.1 FL (86-99); MEAN PLAT.VOLUME 11.2 uM^3 (9.0-12.4); MONOCYTE COUNT 0.7 K/uL (0-0.8); NEUTROPHIL (%) 69.9 % (45-76); NEUTROPHIL COUNT 4.7 K/uL (1.8-6.4); PLATELET COUNT 125 K/uL (156-360); RBC DIS.WIDTH-CV 14.9 % (11.8-14.6); RBC DIS.WIDTH-SD 53.9 % (39-53); RED BLOOD COUNT 2.63 M/uL (4.00-5.50); WHITE BLOOD COUNT 6.8 K/uL (4.1-10.2)
[2017-09-13 07:30] LABS: ALKALINE PHOSPHATASE 203 IU/L (3-129); ANION GAP 16 MEQ/L (2-14); CHLORIDE 113 MEQ/L (99-109); GFR ESTIMATE (CALCULATED) 9 mL/min/; POTASSIUM 5.5 MEQ/L (3.7-5.4); SAMPLE HEMOLYSIS CHECK 0; SAMPLE ICTERIC CHECK 0; SAMPLE LIPEMIA CHECK 0; SODIUM 143 MEQ/L (136-147); TOTAL BILIRUBIN 0.9 MG/DL (0.0-1.0); UREA NITROGEN (BUN) 89 mg/dL (9-23)
[2017-09-13 07:33] LABS: GLUCOSE 75 mg/dL (70-99)
[2017-09-13 10:29] LABS: HPCA INDEX 0.34
[2017-09-13 10:30] LABS: ANTI-HEPATITIS A VIRUS (IGM) Nonreactive; ANTI-HEPATITIS B CORE (IGM) Nonreactive; HAV INDEX 0.13
[2017-09-13 11:54] LABS: CREATINE KINASE 5249 IU/L (1-294)
[2017-09-13 12:09] LABS: POINT-OF-CARE METER ID UU14314083
[2017-09-13 17:37] LABS: POINT-OF-CARE METER ID UU14314083
[2017-09-13 22:20] LABS: POINT-OF-CARE METER ID UU14314082
[2017-09-14] VITALS (24 sets, daily range): BP systolic 111–150; BP diastolic 66–109
[2017-09-14 06:17] LABS: BASOPHIL COUNT 0.1 K/uL (0-0.1); EOSINOPHIL COUNT 0.3 K/uL (0-0.3); HEMATOCRIT 23.9 % (38.0-50.0); IMMATURE GRANULOCYTE (%) 0.3 % (0.0-0.7); INSTRUMENT ABS NEUTROPHIL CT 3.9 K/uL; LYMPHOCYTE COUNT 1.1 K/uL (1.0-2.8); MCH 31.3 PG (29.0-34.0); MCHC 33.9 G/DL (30.0-36.0); MCV 92.3 FL (86-99); MEAN PLAT.VOLUME 10.4 uM^3 (9.0-12.4); MONOCYTE (%) 8.7 % (3-12); MONOCYTE COUNT 0.5 K/uL (0-0.8); NEUTROPHIL (%) 66.8 % (45-76); NEUTROPHIL COUNT 3.9 K/uL (1.8-6.4); PLATELET COUNT 219 K/uL (156-360); RBC DIS.WIDTH-CV 14.5 % (11.8-14.6); RBC DIS.WIDTH-SD 48.7 % (39-53); RED BLOOD COUNT 2.59 M/uL (4.00-5.50); WHITE BLOOD COUNT 5.8 K/uL (4.1-10.2)
[2017-09-14 06:40] LABS: ANION GAP 13 MEQ/L (2-14); CHLORIDE 103 MEQ/L (99-109); GLUCOSE 68 mg/dL (70-99); SAMPLE HEMOLYSIS CHECK 0; SAMPLE ICTERIC CHECK 0; SAMPLE LIPEMIA CHECK 0; SODIUM 141 MEQ/L (136-147); UREA NITROGEN (BUN) 64 mg/dL (9-23)
[2017-09-14 06:41] LABS: CREATINE KINASE 3054 IU/L (1-294); GFR ESTIMATE (CALCULATED) 11 mL/min/; POTASSIUM 4.3 MEQ/L (3.7-5.4)
[2017-09-14 12:26] LABS: POINT-OF-CARE METER ID UU13113731
[2017-09-14 17:47] LABS: POINT-OF-CARE METER ID UU13113731
[2017-09-14 21:19] LABS: POINT-OF-CARE METER ID UU14314082
[2017-09-15] VITALS (24 sets, daily range): BP systolic 91–163; BP diastolic 56–102
[2017-09-15 07:52] LABS: EOSINOPHIL (%) 3.3 % (0-5); EOSINOPHIL COUNT 0.2 K/uL (0-0.3); HEMATOCRIT 24.5 % (38.0-50.0); IMMATURE GRANULOCYTE (%) 0.5 % (0.0-0.7); INSTRUMENT ABS NEUTROPHIL CT 4.5 K/uL; LYMPHOCYTE COUNT 1.2 K/uL (1.0-2.8); MCH 31.5 PG (29.0-34.0); MCHC 34.7 G/DL (30.0-36.0); MCV 90.7 FL (86-99); MEAN PLAT.VOLUME 9.8 uM^3 (9.0-12.4); MONOCYTE (%) 10.1 % (3-12); MONOCYTE COUNT 0.7 K/uL (0-0.8); NEUTROPHIL (%) 67.9 % (45-76); NEUTROPHIL COUNT 4.5 K/uL (1.8-6.4); PLATELET COUNT 232 K/uL (156-360); RBC DIS.WIDTH-CV 14.1 % (11.8-14.6); RBC DIS.WIDTH-SD 46.2 % (39-53); WHITE BLOOD COUNT 6.6 K/uL (4.1-10.2)
[2017-09-15 08:13] LABS: ANION GAP 10 MEQ/L (2-14); CHLORIDE 104 MEQ/L (99-109); POTASSIUM 4.1 MEQ/L (3.7-5.4); SAMPLE HEMOLYSIS CHECK 0; SAMPLE ICTERIC CHECK 0; SAMPLE LIPEMIA CHECK 0; SODIUM 141 MEQ/L (136-147)
[2017-09-15 08:19] LABS: GFR ESTIMATE (CALCULATED) 13 mL/min/; UREA NITROGEN (BUN) 49 mg/dL (9-23)
[2017-09-15 08:20] LABS: GLUCOSE 101 mg/dL (70-99)
[2017-09-15 12:19] LABS: POINT-OF-CARE METER ID UU13113748
[2017-09-15 17:13] LABS: POINT-OF-CARE METER ID UU13113731
[2017-09-15 21:48] LABS: POINT-OF-CARE METER ID UU13113748; POINT-OF-CARE USER ID RADDRS44
[2017-09-16] VITALS (17 sets, daily range): BP systolic 109–145; BP diastolic 55–94
[2017-09-16 04:56] LABS: BASOPHIL COUNT 0.1 K/uL (0-0.1); EOSINOPHIL (%) 4.1 % (0-5); EOSINOPHIL COUNT 0.3 K/uL (0-0.3); HEMATOCRIT 24.6 % (38.0-50.0); IMMATURE GRANULOCYTE (%) 0.7 % (0.0-0.7); IMMATURE GRANULOCYTE COUNT 0.1 K/uL; INSTRUMENT ABS NEUTROPHIL CT 4.4 K/uL; LYMPHOCYTE COUNT 1.5 K/uL (1.0-2.8); MCH 31.3 PG (29.0-34.0); MCHC 34.6 G/DL (30.0-36.0); MCV 90.4 FL (86-99); MEAN PLAT.VOLUME 10.2 uM^3 (9.0-12.4); MONOCYTE (%) 7.7 % (3-12); MONOCYTE COUNT 0.5 K/uL (0-0.8); NEUTROPHIL (%) 64.9 % (45-76); NEUTROPHIL COUNT 4.4 K/uL (1.8-6.4); PLATELET COUNT 281 K/uL (156-360); RBC DIS.WIDTH-CV 13.9 % (11.8-14.6); RBC DIS.WIDTH-SD 45.6 % (39-53); RED BLOOD COUNT 2.72 M/uL (4.00-5.50); WHITE BLOOD COUNT 6.8 K/uL (4.1-10.2)
[2017-09-16 05:12] LABS: POTASSIUM 4.2 mEq/L (3.7-5.4); SODIUM 143 mEq/L (136-147)
[2017-09-16 05:14] LABS: GLUCOSE 139 mg/dL (70-99)
[2017-09-16 05:15] LABS: ANION GAP 15 MEQ/L (2-14)
[2017-09-16 05:19] LABS: UREA NITROGEN (BUN) 62 mg/dL (9-23)
[2017-09-16 05:25] LABS: CHLORIDE 104 mEq/L (99-109); GFR ESTIMATE (CALCULATED) 10 mL/min/
[2017-09-16 08:07] LABS: POINT-OF-CARE METER ID UU13113731
[2017-09-16 10:37] LABS: POINT-OF-CARE METER ID UU13113675
[2017-09-16 17:42] LABS: POINT-OF-CARE METER ID UU13113731
[2017-09-17 05:58] LABS: HEMATOCRIT 23.8 % (38.0-50.0); MCH 30.8 PG (29.0-34.0); MCHC 33.6 G/DL (30.0-36.0); MCV 91.5 FL (86-99); MEAN PLAT.VOLUME 9.5 uM^3 (9.0-12.4); PLATELET COUNT 293 K/uL (156-360); RBC DIS.WIDTH-CV 13.9 % (11.8-14.6); RBC DIS.WIDTH-SD 46.6 % (39-53); WHITE BLOOD COUNT 6.5 K/uL (4.1-10.2)
[2017-09-17 06:31] LABS: ANION GAP 10 MEQ/L (2-14); CHLORIDE 105 MEQ/L (99-109); GFR ESTIMATE (CALCULATED) 16 mL/min/; GLUCOSE 163 mg/dL (70-99); POTASSIUM 3.9 MEQ/L (3.7-5.4); SAMPLE HEMOLYSIS CHECK 0; SAMPLE ICTERIC CHECK 0; SAMPLE LIPEMIA CHECK 0; SODIUM 145 MEQ/L (136-147); UREA NITROGEN (BUN) 40 mg/dL (9-23)
[2017-09-17 07:35] VITALS: BP 144/81
[2017-09-17 16:07] VITALS: BP 165/75
[2017-09-17 20:58] LABS: POINT-OF-CARE METER ID UU13113774
[2017-09-17 21:20] LABS: POINT-OF-CARE METER ID UU13113725
[2017-09-17 21:20] LABS: POINT-OF-CARE METER ID UU13113725
[2017-09-17 21:20] LABS: POINT-OF-CARE METER ID UU13113725
[2017-09-17 21:27] LABS: POINT-OF-CARE METER ID UU13113725
[2017-09-17 23:24] VITALS: BP 153/79
[2017-09-18 05:50] LABS: POINT-OF-CARE METER ID UU13113774
[2017-09-18 06:33] LABS: ANION GAP 10 MEQ/L (2-14); CHLORIDE 105 MEQ/L (99-109); GFR ESTIMATE (CALCULATED) 14 mL/min/; GLUCOSE 204 mg/dL (70-99); POTASSIUM 3.9 MEQ/L (3.7-5.4); SAMPLE HEMOLYSIS CHECK 0; SAMPLE ICTERIC CHECK 0; SAMPLE LIPEMIA CHECK 0; SODIUM 145 MEQ/L (136-147); UREA NITROGEN (BUN) 54 mg/dL (9-23)
[2017-09-18 07:40] VITALS: BP 139/82
[2017-09-18 12:51] LABS: HEMATOCRIT 25.9 % (38.0-50.0); MCHC 32.8 G/DL (30.0-36.0); MCV 94.5 FL (86-99); MEAN PLAT.VOLUME 10.5 uM^3 (9.0-12.4); PLATELET COUNT 375 K/uL (156-360); RBC DIS.WIDTH-SD 48.1 % (39-53); RED BLOOD COUNT 2.74 M/uL (4.00-5.50); WHITE BLOOD COUNT 8.2 K/uL (4.1-10.2)
[2017-09-18 16:58] VITALS: BP 140/80
[2017-09-18 21:24] LABS: POINT-OF-CARE METER ID UU13113725
[2017-09-18 23:41] VITALS: BP 143/74
[2017-09-19 05:40] LABS: POINT-OF-CARE METER ID UU13113774
[2017-09-19 05:52] LABS: BASOPHIL COUNT 0.1 K/uL (0-0.1); EOSINOPHIL (%) 3.5 % (0-5); EOSINOPHIL COUNT 0.3 K/uL (0-0.3); HEMATOCRIT 24.9 % (38.0-50.0); IMMATURE GRANULOCYTE (%) 0.7 % (0.0-0.7); IMMATURE GRANULOCYTE COUNT 0.1 K/uL; INSTRUMENT ABS NEUTROPHIL CT 5.5 K/uL; MCH 31.1 PG (29.0-34.0); MCHC 33.7 G/DL (30.0-36.0); MCV 92.2 FL (86-99); MONOCYTE (%) 7.6 % (3-12); MONOCYTE COUNT 0.7 K/uL (0-0.8); NEUTROPHIL (%) 64.3 % (45-76); NEUTROPHIL COUNT 5.5 K/uL (1.8-6.4); PLATELET COUNT 401 K/uL (156-360); RBC DIS.WIDTH-CV 13.8 % (11.8-14.6); RBC DIS.WIDTH-SD 46.2 % (39-53); WHITE BLOOD COUNT 8.5 K/uL (4.1-10.2)
[2017-09-19 06:19] LABS: ANION GAP 9 MEQ/L (2-14); CHLORIDE 103 MEQ/L (99-109); GFR ESTIMATE (CALCULATED) 15 mL/min/; GLUCOSE 252 mg/dL (70-99); POTASSIUM 3.8 MEQ/L (3.7-5.4); SAMPLE HEMOLYSIS CHECK 0; SAMPLE ICTERIC CHECK 0; SAMPLE LIPEMIA CHECK 0; SODIUM 143 MEQ/L (136-147); UREA NITROGEN (BUN) 57 mg/dL (9-23)
[2017-09-19 06:20] LABS: MAGNESIUM 1.5 mg/dl (1.3-2.7)
[2017-09-19 07:22] VITALS: BP 122/72
[2017-09-19 08:09] LABS: POINT-OF-CARE METER ID UU13113725
[2017-09-19 08:09] LABS: POINT-OF-CARE METER ID UU13113774
[2017-09-19 10:40] VITALS: BP 140/79
[2017-09-19 15:46] VITALS: BP 129/72
[2017-09-19 21:01] LABS: POINT-OF-CARE METER ID UU13113774
[2017-09-19 21:01] LABS: POINT-OF-CARE METER ID UU13113725
[2017-09-19 21:32] LABS: POINT-OF-CARE METER ID UU13113725
[2017-09-20 00:07] VITALS: BP 167/84
[2017-09-20 06:23] LABS: POINT-OF-CARE METER ID UU13113725
[2017-09-20 06:32] LABS: ANION GAP 9 MEQ/L (2-14); CHLORIDE 105 MEQ/L (99-109); GFR ESTIMATE (CALCULATED) 17 mL/min/; GLUCOSE 332 mg/dL (70-99); MAGNESIUM 1.5 mg/dl (1.3-2.7); POTASSIUM 4.1 MEQ/L (3.7-5.4); SAMPLE HEMOLYSIS CHECK 0; SAMPLE ICTERIC CHECK 0; SAMPLE LIPEMIA CHECK 0; SODIUM 145 MEQ/L (136-147); UREA NITROGEN (BUN) 59 mg/dL (9-23)
[2017-09-20 07:08] VITALS: BP 170/88
[2017-09-20 07:27] LABS: BASOPHIL COUNT 0.1 K/uL (0-0.1); EOSINOPHIL (%) 3.9 % (0-5); EOSINOPHIL COUNT 0.3 K/uL (0-0.3); HEMATOCRIT 24.6 % (38.0-50.0); IMMATURE GRANULOCYTE (%) 1.4 % (0.0-0.7); IMMATURE GRANULOCYTE COUNT 0.1 K/uL; INSTRUMENT ABS NEUTROPHIL CT 5.2 K/uL; LYMPHOCYTE COUNT 1.7 K/uL (1.0-2.8); MCHC 34.6 G/DL (30.0-36.0); MCV 92.5 FL (86-99); MEAN PLAT.VOLUME 9.9 uM^3 (9.0-12.4); MONOCYTE (%) 7.3 % (3-12); MONOCYTE COUNT 0.6 K/uL (0-0.8); NEUTROPHIL (%) 65.3 % (45-76); NEUTROPHIL COUNT 5.2 K/uL (1.8-6.4); PLATELET COUNT 496 K/uL (156-360); RBC DIS.WIDTH-CV 13.6 % (11.8-14.6); RBC DIS.WIDTH-SD 46.5 % (39-53); RED BLOOD COUNT 2.66 M/uL (4.00-5.50)
[2017-09-20 17:04] VITALS: BP 168/78
[2017-09-20 21:13] LABS: POINT-OF-CARE METER ID UU13113774
[2017-09-21] VITALS: BP 139/78
[2017-09-21 06:09] LABS: BASOPHIL COUNT 0.1 K/uL (0-0.1); EOSINOPHIL (%) 3.2 % (0-5); EOSINOPHIL COUNT 0.3 K/uL (0-0.3); HEMATOCRIT 25.3 % (38.0-50.0); IMMATURE GRANULOCYTE (%) 0.4 % (0.0-0.7); INSTRUMENT ABS NEUTROPHIL CT 5.5 K/uL; LYMPHOCYTE COUNT 1.7 K/uL (1.0-2.8); MCH 31.3 PG (29.0-34.0); MCHC 33.6 G/DL (30.0-36.0); MONOCYTE (%) 6.6 % (3-12); MONOCYTE COUNT 0.5 K/uL (0-0.8); NEUTROPHIL (%) 67.3 % (45-76); NEUTROPHIL COUNT 5.5 K/uL (1.8-6.4); PLATELET COUNT 523 K/uL (156-360); RBC DIS.WIDTH-CV 13.7 % (11.8-14.6); RBC DIS.WIDTH-SD 46.7 % (39-53); RED BLOOD COUNT 2.72 M/uL (4.00-5.50); WHITE BLOOD COUNT 8.1 K/uL (4.1-10.2)
[2017-09-21 06:42] LABS: ANION GAP 9 MEQ/L (2-14); CHLORIDE 105 MEQ/L (99-109); GFR ESTIMATE (CALCULATED) 23 mL/min/; GLUCOSE 230 mg/dL (70-99); MAGNESIUM 1.4 mg/dl (1.3-2.7); SAMPLE HEMOLYSIS CHECK 0; SAMPLE ICTERIC CHECK 0; SAMPLE LIPEMIA CHECK 0; SODIUM 146 MEQ/L (136-147); UREA NITROGEN (BUN) 56 mg/dL (9-23)
[2017-09-21 07:00] VITALS: BP 143/77
[2017-09-21 09:40] LABS: POINT-OF-CARE METER ID UU13113725
[2017-09-21 09:41] LABS: POINT-OF-CARE METER ID UU13113725
[2017-09-21 09:41] LABS: POINT-OF-CARE METER ID UU13113774
[2017-09-21 11:47] LABS: POINT-OF-CARE METER ID UU13113774
[2017-09-21 15:49] VITALS: BP 111/62
[2017-09-21 16:36] LABS: POINT-OF-CARE METER ID UU13113774
[2017-09-21 19:43] VITALS: BP 139/78
[2017-09-21 21:20] LABS: POINT-OF-CARE METER ID UU13113774
[2017-09-21 23:20] VITALS: BP 161/83
[2017-09-22 03:15] VITALS: BP 165/85
[2017-09-22 05:31] LABS: BASOPHIL COUNT 0.1 K/uL (0-0.1); EOSINOPHIL (%) 3.4 % (0-5); EOSINOPHIL COUNT 0.3 K/uL (0-0.3); HEMATOCRIT 24.9 % (38.0-50.0); IMMATURE GRANULOCYTE (%) 0.4 % (0.0-0.7); INSTRUMENT ABS NEUTROPHIL CT 4.4 K/uL; MCH 30.2 PG (29.0-34.0); MCHC 32.5 G/DL (30.0-36.0); MCV 92.9 FL (86-99); MEAN PLAT.VOLUME 9.2 uM^3 (9.0-12.4); MONOCYTE (%) 7.3 % (3-12); MONOCYTE COUNT 0.5 K/uL (0-0.8); NEUTROPHIL (%) 60.9 % (45-76); NEUTROPHIL COUNT 4.4 K/uL (1.8-6.4); PLATELET COUNT 540 K/uL (156-360); RBC DIS.WIDTH-CV 13.6 % (11.8-14.6); RBC DIS.WIDTH-SD 46.5 % (39-53); RED BLOOD COUNT 2.68 M/uL (4.00-5.50); WHITE BLOOD COUNT 7.3 K/uL (4.1-10.2)
[2017-09-22 05:54] LABS: POINT-OF-CARE METER ID UU13113774
[2017-09-22 05:55] LABS: ANION GAP 10 MEQ/L (2-14); CHLORIDE 107 MEQ/L (99-109); GFR ESTIMATE (CALCULATED) 27 mL/min/; GLUCOSE 143 mg/dL (70-99); MAGNESIUM 1.5 mg/dl (1.3-2.7); POTASSIUM 3.7 MEQ/L (3.7-5.4); SAMPLE HEMOLYSIS CHECK 0; SAMPLE ICTERIC CHECK 0; SAMPLE LIPEMIA CHECK 0; SODIUM 147 MEQ/L (136-147); UREA NITROGEN (BUN) 50 mg/dL (9-23)
[2017-09-22 07:10] VITALS: BP 156/76
[2017-09-22 11:00] VITALS: BP 144/81
[2017-09-22 12:45] LABS: POINT-OF-CARE METER ID UU13113675
[2017-09-22 15:15] VITALS: BP 148/79
[2017-09-22 20:51] LABS: POINT-OF-CARE METER ID UU13113725
[2017-09-22 23:57] VITALS: BP 150/65
[2017-09-23 06:19] LABS: BASOPHIL COUNT 0.1 K/uL (0-0.1); EOSINOPHIL (%) 3.9 % (0-5); EOSINOPHIL COUNT 0.3 K/uL (0-0.3); HEMATOCRIT 24.9 % (38.0-50.0); IMMATURE GRANULOCYTE (%) 0.4 % (0.0-0.7); INSTRUMENT ABS NEUTROPHIL CT 4.9 K/uL; LYMPHOCYTE COUNT 1.9 K/uL (1.0-2.8); MCH 31.8 PG (29.0-34.0); MCHC 33.3 G/DL (30.0-36.0); MCV 95.4 FL (86-99); MEAN PLAT.VOLUME 9.7 uM^3 (9.0-12.4); MONOCYTE (%) 7.9 % (3-12); MONOCYTE COUNT 0.6 K/uL (0-0.8); NEUTROPHIL (%) 62.3 % (45-76); NEUTROPHIL COUNT 4.9 K/uL (1.8-6.4); PLATELET COUNT 573 K/uL (156-360); RBC DIS.WIDTH-CV 13.8 % (11.8-14.6); RBC DIS.WIDTH-SD 48.1 % (39-53); RED BLOOD COUNT 2.61 M/uL (4.00-5.50); WHITE BLOOD COUNT 7.9 K/uL (4.1-10.2)
[2017-09-23 06:24] LABS: POINT-OF-CARE METER ID UU13113774
[2017-09-23 06:48] LABS: ANION GAP 10 MEQ/L (2-14); CHLORIDE 109 MEQ/L (99-109); GFR ESTIMATE (CALCULATED) 27 mL/min/; MAGNESIUM 1.4 mg/dl (1.3-2.7); SAMPLE HEMOLYSIS CHECK 0; SAMPLE ICTERIC CHECK 0; SAMPLE LIPEMIA CHECK 0; SODIUM 148 MEQ/L (136-147); UREA NITROGEN (BUN) 48 mg/dL (9-23)
[2017-09-23 06:50] LABS: GLUCOSE 73 mg/dL (70-99)
[2017-09-23 08:49] VITALS: BP 159/76
[2017-09-23 11:32] LABS: POINT-OF-CARE METER ID UU13113774
[2017-09-23 15:55] VITALS: BP 127/67
[2017-09-23 22:10] LABS: POINT-OF-CARE METER ID UU13113725
[2017-09-23 22:10] LABS: POINT-OF-CARE METER ID UU13113725
[2017-09-23 22:44] LABS: POINT-OF-CARE METER ID UU13113774
[2017-09-24 00:20] VITALS: BP 133/76
[2017-09-24 06:04] LABS: POINT-OF-CARE METER ID UU13113774
[2017-09-24 06:12] LABS: BASOPHIL COUNT 0.1 K/uL (0-0.1); EOSINOPHIL (%) 4.1 % (0-5); EOSINOPHIL COUNT 0.3 K/uL (0-0.3); HEMATOCRIT 24.9 % (38.0-50.0); IMMATURE GRANULOCYTE (%) 0.5 % (0.0-0.7); INSTRUMENT ABS NEUTROPHIL CT 3.6 K/uL; LYMPHOCYTE COUNT 1.8 K/uL (1.0-2.8); MCH 30.8 PG (29.0-34.0); MCHC 32.9 G/DL (30.0-36.0); MCV 93.6 FL (86-99); MEAN PLAT.VOLUME 9.5 uM^3 (9.0-12.4); MONOCYTE (%) 7.9 % (3-12); MONOCYTE COUNT 0.5 K/uL (0-0.8); NEUTROPHIL (%) 57.2 % (45-76); NEUTROPHIL COUNT 3.6 K/uL (1.8-6.4); PLATELET COUNT 609 K/uL (156-360); RBC DIS.WIDTH-CV 13.6 % (11.8-14.6); RBC DIS.WIDTH-SD 46.8 % (39-53); RED BLOOD COUNT 2.66 M/uL (4.00-5.50); WHITE BLOOD COUNT 6.3 K/uL (4.1-10.2)
[2017-09-24 06:30] LABS: CHLORIDE 111 MEQ/L (99-109); POTASSIUM 3.8 MEQ/L (3.7-5.4); SODIUM 148 MEQ/L (136-147)
[2017-09-24 07:34] VITALS: BP 168/81
[2017-09-24 07:56] LABS: ANION GAP 10 MEQ/L (2-14); GFR ESTIMATE (CALCULATED) 33 mL/min/; SAMPLE HEMOLYSIS CHECK 0; SAMPLE ICTERIC CHECK 0; SAMPLE LIPEMIA CHECK 0; UREA NITROGEN (BUN) 47 mg/dL (9-23)
[2017-09-24 07:58] LABS: GLUCOSE 96 mg/dL (70-99)
[2017-09-24 12:08] LABS: POINT-OF-CARE METER ID UU13113725
[2017-09-24 15:23] VITALS: BP 162/79
[2017-09-24 21:53] LABS: POINT-OF-CARE METER ID UU13113774
[2017-09-24 23:35] VITALS: BP 148/74
[2017-09-25 06:11] LABS: BASOPHIL COUNT 0.1 K/uL (0-0.1); EOSINOPHIL (%) 4.3 % (0-5); EOSINOPHIL COUNT 0.3 K/uL (0-0.3); IMMATURE GRANULOCYTE (%) 0.3 % (0.0-0.7); INSTRUMENT ABS NEUTROPHIL CT 3.4 K/uL; LYMPHOCYTE COUNT 1.6 K/uL (1.0-2.8); MCH 31.3 PG (29.0-34.0); MCHC 33.3 G/DL (30.0-36.0); MCV 93.8 FL (86-99); MEAN PLAT.VOLUME 9.4 uM^3 (9.0-12.4); MONOCYTE (%) 7.1 % (3-12); MONOCYTE COUNT 0.4 K/uL (0-0.8); NEUTROPHIL (%) 58.2 % (45-76); NEUTROPHIL COUNT 3.4 K/uL (1.8-6.4); PLATELET COUNT 561 K/uL (156-360); RBC DIS.WIDTH-CV 13.6 % (11.8-14.6); RBC DIS.WIDTH-SD 47.1 % (39-53); RED BLOOD COUNT 2.56 M/uL (4.00-5.50); WHITE BLOOD COUNT 5.8 K/uL (4.1-10.2)
[2017-09-25 06:19] LABS: POINT-OF-CARE METER ID UU13113774
[2017-09-25 06:35] LABS: POINT-OF-CARE METER ID UU13113774
[2017-09-25 06:46] LABS: ANION GAP 9 MEQ/L (2-14); CHLORIDE 111 MEQ/L (99-109); GFR ESTIMATE (CALCULATED) 39 mL/min/; POTASSIUM 3.7 MEQ/L (3.7-5.4); SAMPLE HEMOLYSIS CHECK 0; SAMPLE ICTERIC CHECK 0; SAMPLE LIPEMIA CHECK 0; SODIUM 147 MEQ/L (136-147); UREA NITROGEN (BUN) 39 mg/dL (9-23)
[2017-09-25 06:47] LABS: GLUCOSE 65 mg/dL (70-99)
[2017-09-25 09:50] LABS: POINT-OF-CARE METER ID UU13113774
[2017-09-25 11:39] LABS: POINT-OF-CARE METER ID UU13113725
[2017-09-25 17:15] LABS: POINT-OF-CARE METER ID UU13113774
[2017-09-25 21:19] LABS: POINT-OF-CARE METER ID UU13113774
[2017-09-26 00:29] VITALS: BP 119/72
[2017-09-26 06:05] LABS: POINT-OF-CARE METER ID UU13113774
[2017-09-26 07:27] VITALS: BP 165/81
[2017-09-26 09:27] LABS: HEMATOCRIT 24.5 % (38.0-50.0); MCH 31.8 PG (29.0-34.0); MCHC 33.9 G/DL (30.0-36.0); MCV 93.9 FL (86-99); MEAN PLAT.VOLUME 9.8 uM^3 (9.0-12.4); PLATELET COUNT 582 K/uL (156-360); RBC DIS.WIDTH-CV 13.8 % (11.8-14.6); RBC DIS.WIDTH-SD 47.4 % (39-53); RED BLOOD COUNT 2.61 M/uL (4.00-5.50); WHITE BLOOD COUNT 6.3 K/uL (4.1-10.2)
[2017-09-26 09:44] LABS: ANION GAP 9 MEQ/L (2-14); CHLORIDE 111 MEQ/L (99-109); GFR ESTIMATE (CALCULATED) 41 mL/min/; POTASSIUM 3.9 MEQ/L (3.7-5.4); SAMPLE HEMOLYSIS CHECK 0; SAMPLE ICTERIC CHECK 0; SAMPLE LIPEMIA CHECK 0; SODIUM 144 MEQ/L (136-147); UREA NITROGEN (BUN) 35 mg/dL (9-23)
[2017-09-26 10:15] LABS: GLUCOSE 164 mg/dL (70-99)
[2017-09-26 11:56] LABS: POINT-OF-CARE METER ID UU13113774
[2017-09-26 15:34] VITALS: BP 119/64
[2017-09-26 16:15] LABS: POINT-OF-CARE METER ID UU13113774
[2017-09-26] MEDS ORDERED: OLANZAPINE5 MG PO (16:58)
[2017-09-26] MEDS ORDERED: LEVEMIR100 UNIT/2 SC (16:58)
[2017-09-26] MEDS ORDERED: OXYCODONE-APAP1 EACH PO (16:58)
[2017-09-26] MEDS ORDERED: NIFEDIPINE ER30 MG PO (16:58)
== END 2017-09-26 18:44 | DRG 901 ==
LOC: EME 13:47 → EDOF 17:06 → 4WEST 17:06 → ENRESERV 17:07 → 4WEST 17:42 → ENRESERV 09-12 15:30 → 4WEST 09-12 16:47 → ENRESERV 09-16 15:51 → 5EAST 09-16 19:36
PROVIDERS: Emergency Medicine; Hospitalist; Internal Medicine Critical Care Medicine; Internal Medicine Nephrology; Physician Assistant Medical; Surgery
PROC: 0KNT0ZZ Release Left Lower Leg Muscle, Open Approach (ICD-10-PCS; principal; 2017-09-11)
PROC: 04HY32Z Insertion of Monitoring Device into Lower Artery, Percutaneous Approach (ICD-10-PCS; principal; 2017-09-11)
PROC: 0SWRXJZ Revision of Synthetic Substitute in Right Hip Joint, Femoral Surface, External Approach (ICD-10-PCS; principal; 2017-09-11)
PROC: 0SWRXJZ Revision of Synthetic Substitute in Right Hip Joint, Femoral Surface, External Approach (ICD-10-PCS; 2017-09-12)
PROC: 5A1D70Z Performance of Urinary Filtration, Intermittent, Less than 6 Hours Per Day (ICD-10-PCS; 2017-09-13)
PROC: 02HV33Z Insertion of Infusion Device into Superior Vena Cava, Percutaneous Approach (ICD-10-PCS; 2017-09-13)
PROC: 0HQLXZZ Repair Left Lower Leg Skin, External Approach (ICD-10-PCS; 2017-09-16)
PROC: 2W6RX0Z Traction of Left Lower Leg using Traction Apparatus (ICD-10-PCS; 2017-09-16)
PROC: 02PYX3Z Removal of Infusion Device from Great Vessel, External Approach (ICD-10-PCS; 2017-09-20)
PROC: 0HQLXZZ Repair Left Lower Leg Skin, External Approach (ICD-10-PCS; 2017-09-22)
PROC: 0JBP0ZZ Excision of Left Lower Leg Subcutaneous Tissue and Fascia, Open Approach (ICD-10-PCS; 2017-09-22)
DX: T79.A22A Traumatic compartment syndrome of left lower extremity, initial encounter (principal); R65.11 Systemic inflammatory response syndrome (SIRS) of non-infectious origin with acute organ dysfunction; T79.5XXA Traumatic anuria, initial encounter; E87.5 Hyperkalemia; E87.2 Acidosis; T84.020A Dislocation of internal right hip prosthesis, initial encounter; Y79.2 Prosthetic and other implants, materials and accessory orthopedic devices associated with adverse incidents; Z96.641 Presence of right artificial hip joint; L89.329 Pressure ulcer of left buttock, unspecified stage; L89.319 Pressure ulcer of right buttock, unspecified stage; E11.621 Type 2 diabetes mellitus with foot ulcer; L89.629 Pressure ulcer of left heel, unspecified stage; L89.619 Pressure ulcer of right heel, unspecified stage; D62 Acute posthemorrhagic anemia; E11.22 Type 2 diabetes mellitus with diabetic chronic kidney disease; E11.65 Type 2 diabetes mellitus with hyperglycemia; D69.6 Thrombocytopenia, unspecified; E86.0 Dehydration; E83.51 Hypocalcemia; F11.10 Opioid abuse, uncomplicated; E83.39 Other disorders of phosphorus metabolism; R41.0 Disorientation, unspecified; S80.211A Abrasion, right knee, initial encounter; W19.XXXA Unspecified fall, initial encounter; Y92.009 Unspecified place in unspecified non-institutional (private) residence as the place of occurrence of the external cause; R79.89 Other specified abnormal findings of blood chemistry; I12.9 Hypertensive chronic kidney disease with stage 1 through stage 4 chronic kidney disease, or unspecified chronic kidney disease; N18.9 Chronic kidney disease, unspecified; D63.1 Anemia in chronic kidney disease; J44.9 Chronic obstructive pulmonary disease, unspecified; G40.909 Epilepsy, unspecified, not intractable, without status epilepticus; K21.9 Gastro-esophageal reflux disease without esophagitis; F10.10 Alcohol abuse, uncomplicated; F17.200 Nicotine dependence, unspecified, uncomplicated; G89.4 Chronic pain syndrome; F41.8 Other specified anxiety disorders; Z79.84 Long term (current) use of oral hypoglycemic drugs; Z91.19 Patient's noncompliance with other medical treatment and regimen; Z91.11 Patient's noncompliance with dietary regimen; Z56.0 Unemployment, unspecified; Z82.49 Family history of ischemic heart disease and other diseases of the circulatory system
CPT/HCPCS: 70450; 71010; 72125; 73501; 73502; 73552; 73560; 76000; 76770; 80047; 80048; 80048 91; 80053; 80069; 80074; 81003; 82010; 82550; 82550 91; 82553; 82570; 82803; 82948; 83605; 83735; 84100; 84300; 84999; 85025; 85025 91; 85027; 86705; 86709; 86803; 86850; 86900; 86901; 87040; 87340; 87641; 93005; 93971; 99281; 99285; C1751; C1788; J0171; J0610; J0690; J1170; J1644; J1815; J1940; J2250; J2405; J2543; J3010; J7030; J7050; J7070

== ENCOUNTER → 2017-10-30 | Outpatient (CLI) | payer OTHER ==
[~2017-10-30] MED LIST changes: +LEVEMIR100 UNIT/2 SC; +NALOXONE HC1 MG/1 ML IM; +NIFEDIPINE ER30 MG PO; +OLANZAPINE5 MG PO; +OXYCODONE HCL5 MG PO
== END ==
LOC: RAD 11:00
DX: M79.89 Other specified soft tissue disorders (principal); M25.552 Pain in left hip; Z96.641 Presence of right artificial hip joint
CPT/HCPCS: 72192

== ENCOUNTER 2018-05-27 08:10 | Inpatient (IN) | payer OTHER ==
[~2018-05-27] VITALS: Ht 170.2 cm; Wt 94.6 kg
[2018-05-27 09:00] LABS: BASOPHIL (%) 0.7 % (0-1); BASOPHIL COUNT 0.1 K/uL (0-0.1); EOSINOPHIL (%) 2.1 % (0-5); EOSINOPHIL COUNT 0.2 K/uL (0-0.3); HEMATOCRIT 27.8 % (38.0-50.0); HEMOGLOBIN 9.2 G/DL (12.5-16.6); IMMATURE GRANULOCYTE (%) 0.5 % (0.0-0.7); LYMPHOCYTE (%) 12.3 % (15-42); LYMPHOCYTE COUNT 1.3 K/uL (1.0-2.8); MCH 31.5 PG (29.0-34.0); MCHC 33.1 G/DL (30.0-36.0); MCV 95.2 FL (86-99); MONOCYTE (%) 11.2 % (3-12); MONOCYTE COUNT 1.2 K/uL (0-0.8); NEUTROPHIL (%) 73.2 % (45-76); PLATELET COUNT 336 K/uL (156-360); RBC DIS.WIDTH-CV 15.9 % (11.8-14.6); RBC DIS.WIDTH-SD 55.5 % (39-53); RED BLOOD COUNT 2.92 M/uL (4.00-5.50); WHITE BLOOD COUNT 10.9 K/uL (4.1-10.2)
[2018-05-27 09:08] LABS: PTT 29.8 SEC (25-37)
[2018-05-27 09:21] LABS: TROP-I INTERPRETATION NEGATIVE; TROPONIN-I < 0.01 ng/mL (0.0-0.30)
[2018-05-27 09:28] LABS: ALBUMIN 3.4 G/DL (3.2-4.8); ALKALINE PHOSPHATASE 117 IU/L (3-129); ALT (GPT) 12 IU/L (3-49); AST (GOT) 15 IU/L (2-34); CHLORIDE 113 MEQ/L (99-109); CREATININE 3.4 MG/DL (0.6-1.3); GFR ESTIMATE (CALCULATED) 20 mL/min/ (58.99-99999); GLUCOSE 90 mg/dL (70-99); LIPASE 39 U/L (1.0-51.0); SODIUM 142 MEQ/L (136-147); TOTAL BILIRUBIN 0.6 MG/DL (0.0-1.0); TOTAL PROTEIN 6.4 G/DL (6.4-8.3); UREA NITROGEN (BUN) 57 mg/dL (9-23)
[2018-05-27] MEDS ORDERED: ASPIR 8181 M1 PO (10:34)
[2018-05-27] MEDS ORDERED: BASAGLAR K100 UNIT/1 SC ×2 (10:35→10:36)
[2018-05-27] MEDS ORDERED: FUROSEMIDE20 MG PO (10:37)
[2018-05-27] MEDS ORDERED: FENTANYL1 EAC5 TD (10:37)
[2018-05-27] MEDS ORDERED: NIFEDIPINE ER30 MG PO (10:39)
[2018-05-27] MEDS ORDERED: OZEMPIC0.25 MG/0. SC (10:40)
[2018-05-27] MEDS ORDERED: VITAMIN B-12500 MC5 SL (10:41)
[2018-05-27] MEDS ORDERED: ERGOCALCIF50000 UNIT PO (10:42)
[2018-05-27] MEDS ORDERED: FERROUS SULFAT325 MG PO (10:42)
[2018-05-27] MEDS ORDERED: LAMICTAL25 MG PO (10:44)
[2018-05-27] MEDS ORDERED: TIZANIDINE HCL4 MG PO (10:45)
[2018-05-27] MEDS ORDERED: NEURONTIN800 MG PO (10:47)
[2018-05-27] MEDS ORDERED: HUMALOG100 UNIT/1 SC (10:48)
[2018-05-27] MEDS ORDERED: TYLENOL REGULA325 MG PO ×2 (10:48→10:50)
[2018-05-27] MEDS ORDERED: TRAMADOL HCL50 MG PO (10:50)
[2018-05-27 11:12] LABS: APPEARANCE CLOUDY ((CLEAR)); BILIRUBIN NEGATIVE; BLOOD MODERATE; COLOR YELLOW ((YELLOW)); GLUCOSE (STRIP) NEGATIVE; KETONES NEGATIVE; LEUKOCYTES LARGE; NITRITE POSITIVE; PROTEIN (STRIP) 30; SPECIFIC GRAVITY 1.013 (1.000-1.030); UROBILINOGEN 0.2 MG/DL (0.2-1.0)
[2018-05-27 11:23] LABS: BACTERIA 3+ /HPF; EPITHELIAL CELLS 1+ /HPF; MUCUS NONE SEEN /LPF; UCUL ADDED? YES; WHITE BLOOD CELLS TNTC /HPF (0-5)
[2018-05-27 11:54] VITALS: BP 133/77
[2018-05-27 15:31] VITALS: BP 123/71
[2018-05-27 19:21] VITALS: BP 127/73
[2018-05-27 22:57] VITALS: BP 125/60
[2018-05-28 04:04] VITALS: BP 110/63
[2018-05-28 06:06] LABS: HEMATOCRIT 25.1 % (38.0-50.0); HEMOGLOBIN 8.1 G/DL (12.5-16.6); MCH 31.6 PG (29.0-34.0); MCHC 32.3 G/DL (30.0-36.0); PLATELET COUNT 301 K/uL (156-360); RBC DIS.WIDTH-CV 16.2 % (11.8-14.6); RBC DIS.WIDTH-SD 58.4 % (39-53); RED BLOOD COUNT 2.56 M/uL (4.00-5.50); WHITE BLOOD COUNT 7.8 K/uL (4.1-10.2)
[2018-05-28 06:30] LABS: CHLORIDE 114 MEQ/L (99-109); CREATININE 3.8 MG/DL (0.6-1.3); GFR ESTIMATE (CALCULATED) 17 mL/min/ (58.99-99999); GLUCOSE 97 mg/dL (70-99); POTASSIUM 5.4 MEQ/L (3.7-5.4); SODIUM 144 MEQ/L (136-147); UREA NITROGEN (BUN) 58 mg/dL (9-23); VANCOMYCIN, TROUGH 10.3 MCG/ML (10-20)
[2018-05-28 07:20] VITALS: BP 136/65
[2018-05-28 11:20] VITALS: BP 129/70
[2018-05-28 15:55] VITALS: BP 131/73
[2018-05-28 19:07] VITALS: BP 139/81
[2018-05-28 23:15] VITALS: BP 108/55
[2018-05-29 02:40] LABS: UR CREATININE CONCENTRATION 43.7 MG/DL
[2018-05-29 05:58] LABS: BASOPHIL (%) 0.9 % (0-1); BASOPHIL COUNT 0.1 K/uL (0-0.1); EOSINOPHIL (%) 4.5 % (0-5); EOSINOPHIL COUNT 0.4 K/uL (0-0.3); HEMOGLOBIN 8.8 G/DL (12.5-16.6); IMMATURE GRANULOCYTE (%) 0.5 % (0.0-0.7); LYMPHOCYTE (%) 18.8 % (15-42); LYMPHOCYTE COUNT 1.5 K/uL (1.0-2.8); MCH 31.4 PG (29.0-34.0); MCHC 32.6 G/DL (30.0-36.0); MCV 96.4 FL (86-99); NEUTROPHIL (%) 63.3 % (45-76); PLATELET COUNT 339 K/uL (156-360); RBC DIS.WIDTH-CV 15.7 % (11.8-14.6)
[2018-05-29 07:35] LABS: ALBUMIN 3.1 G/DL (3.2-4.8); ALKALINE PHOSPHATASE 128 IU/L (3-129); ALT (GPT) 19 IU/L (3-49); AST (GOT) 24 IU/L (2-34); CHLORIDE 111 MEQ/L (99-109); CREATINE KINASE 792 IU/L (1-294); CREATININE 4.1 MG/DL (0.6-1.3); GFR ESTIMATE (CALCULATED) 16 mL/min/ (58.99-99999); GLUCOSE 103 mg/dL (70-99); MAGNESIUM 2.1 mg/dl (1.3-2.7); PHOSPHORUS 6.2 mg/dL (2.5-4.9); POTASSIUM 5.3 MEQ/L (3.7-5.4); SODIUM 142 MEQ/L (136-147); TOTAL BILIRUBIN 0.6 MG/DL (0.0-1.0); TOTAL PROTEIN 5.8 G/DL (6.4-8.3); UREA NITROGEN (BUN) 64 mg/dL (9-23); URIC ACID 8.8 mg/dL (3.1-9.2)
[2018-05-29 07:56] VITALS: BP 145/889; BP 145/89
[2018-05-29 09:56] LABS: THYROTROPIN (TSH) 7.7 MIU/L (0.4-5.5)
[2018-05-29 15:26] VITALS: BP 101/70
[2018-05-29 23:52] VITALS: BP 132/63
[2018-05-30 06:24] LABS: BASOPHIL (%) 1.1 % (0-1); BASOPHIL COUNT 0.1 K/uL (0-0.1); EOSINOPHIL (%) 5.5 % (0-5); EOSINOPHIL COUNT 0.4 K/uL (0-0.3); HEMOGLOBIN 8.8 G/DL (12.5-16.6); IMMATURE GRANULOCYTE (%) 0.4 % (0.0-0.7); LYMPHOCYTE COUNT 1.5 K/uL (1.0-2.8); MCH 31.1 PG (29.0-34.0); MCHC 32.6 G/DL (30.0-36.0); MCV 95.4 FL (86-99); MONOCYTE (%) 12.6 % (3-12); MONOCYTE COUNT 0.9 K/uL (0-0.8); NEUTROPHIL (%) 60.4 % (45-76); NEUTROPHIL COUNT 4.5 K/uL (1.8-6.4); PLATELET COUNT 341 K/uL (156-360); RBC DIS.WIDTH-CV 15.4 % (11.8-14.6); RBC DIS.WIDTH-SD 53.5 % (39-53); RED BLOOD COUNT 2.83 M/uL (4.00-5.50); WHITE BLOOD COUNT 7.5 K/uL (4.1-10.2)
[2018-05-30 06:42] LABS: CHLORIDE 108 MEQ/L (99-109); CREATININE 4.4 MG/DL (0.6-1.3); GFR ESTIMATE (CALCULATED) 15 mL/min/ (58.99-99999); GLUCOSE 89 mg/dL (70-99); POTASSIUM 5.1 MEQ/L (3.7-5.4); SODIUM 143 MEQ/L (136-147); UREA NITROGEN (BUN) 76 mg/dL (9-23)
[2018-05-30 07:15] VITALS: BP 122/64
[2018-05-30 15:40] VITALS: BP 130/74
[2018-05-30 23:36] VITALS: BP 111/74
[2018-05-31 06:11] LABS: BASOPHIL COUNT 0.1 K/uL (0-0.1); EOSINOPHIL (%) 5.3 % (0-5); EOSINOPHIL COUNT 0.4 K/uL (0-0.3); HEMATOCRIT 28.2 % (38.0-50.0); HEMOGLOBIN 9.3 G/DL (12.5-16.6); IMMATURE GRANULOCYTE (%) 0.4 % (0.0-0.7); LYMPHOCYTE (%) 20.1 % (15-42); LYMPHOCYTE COUNT 1.6 K/uL (1.0-2.8); MCH 31.2 PG (29.0-34.0); MCV 94.6 FL (86-99); MONOCYTE (%) 10.6 % (3-12); MONOCYTE COUNT 0.9 K/uL (0-0.8); NEUTROPHIL (%) 62.6 % (45-76); NEUTROPHIL COUNT 5.1 K/uL (1.8-6.4); PLATELET COUNT 373 K/uL (156-360); RBC DIS.WIDTH-CV 15.4 % (11.8-14.6); RBC DIS.WIDTH-SD 53.1 % (39-53); RED BLOOD COUNT 2.98 M/uL (4.00-5.50); WHITE BLOOD COUNT 8.2 K/uL (4.1-10.2)
[2018-05-31 06:35] LABS: A/G RATIO 1.2 (1.1-1.8); ALBUMIN 3.4 G/DL (3.4-5.0); CHLORIDE 109 MEQ/L (99-109); CREATININE 4.7 MG/DL (0.6-1.3); GFR ESTIMATE (CALCULATED) 14 mL/min/ (58.99-99999); GLOBULINS 2.9 G/DL (2.3-3.5); GLUCOSE 95 mg/dL (70-99); POTASSIUM 4.9 MEQ/L (3.7-5.4); SODIUM 145 MEQ/L (136-147); TOTAL PROTEIN 6.3 G/DL (6.4-8.2); UREA NITROGEN (BUN) 77 mg/dL (9-23)
[2018-05-31 07:17] VITALS: BP 115/57
[2018-05-31 10:42] LABS: Neutrophil Cytoplasmic Aby Negative
[2018-05-31 10:55] VITALS: BP 128/76
[2018-05-31 12:48] VITALS: BP 134/88
[2018-05-31 13:47] LABS: ABS NEUTROPHIL COUNT 5.6; ANISOCYTOSIS NONE SEEN; BASOPHILS 1.7 %; EOSINOPHIL ABS CT 0.2; EOSINOPHILS 2.6 % (0-5.0); LYMPHOCYTES 22.6 % (15.0-45.0); MONOCYTES 4.4 % (0-9.0); PLAT.SUFFICIENCY INCREASED; SEG.NEUTROPHILS 68.7 % (46.0-76.0)
[2018-05-31 16:02] VITALS: BP 130/71
[2018-05-31 21:30] VITALS: BP 139/80
[2018-06-01 05:56] LABS: BASOPHIL (%) 1.1 % (0-1); BASOPHIL COUNT 0.1 K/uL (0-0.1); EOSINOPHIL (%) 5.1 % (0-5); EOSINOPHIL COUNT 0.4 K/uL (0-0.3); HEMATOCRIT 27.5 % (38.0-50.0); HEMOGLOBIN 9.2 G/DL (12.5-16.6); IMMATURE GRANULOCYTE (%) 0.5 % (0.0-0.7); LYMPHOCYTE (%) 15.8 % (15-42); LYMPHOCYTE COUNT 1.3 K/uL (1.0-2.8); MCH 31.7 PG (29.0-34.0); MCHC 33.5 G/DL (30.0-36.0); MCV 94.8 FL (86-99); MONOCYTE (%) 10.6 % (3-12); MONOCYTE COUNT 0.9 K/uL (0-0.8); NEUTROPHIL (%) 66.9 % (45-76); NEUTROPHIL COUNT 5.7 K/uL (1.8-6.4); PLATELET COUNT 365 K/uL (156-360); RBC DIS.WIDTH-CV 14.9 % (11.8-14.6); RBC DIS.WIDTH-SD 51.8 % (39-53); WHITE BLOOD COUNT 8.5 K/uL (4.1-10.2)
[2018-06-01 06:38] LABS: CHLORIDE 104 MEQ/L (99-109); CREATININE 4.3 MG/DL (0.6-1.3); GFR ESTIMATE (CALCULATED) 15 mL/min/ (58.99-99999); GLUCOSE 136 mg/dL (70-99); POTASSIUM 4.9 MEQ/L (3.7-5.4); SODIUM 141 MEQ/L (136-147); UREA NITROGEN (BUN) 85 mg/dL (9-23)
[2018-06-01 08:14] VITALS: BP 129/67
[2018-06-01 10:10] LABS: Metanephrine,Plasma <25 pg/mL (<=57)
[2018-06-01 14:21] LABS: RENIN ACTIVITY 1.27 ng/mL/h (0.25-5.82)
[2018-06-01 17:02] VITALS: BP 135/72
[2018-06-01 21:42] VITALS: BP 129/66
[2018-06-01 22:58] VITALS: BP 114/58
[2018-06-02 06:11] LABS: BASOPHIL COUNT 0.1 K/uL (0-0.1); EOSINOPHIL (%) 5.5 % (0-5); EOSINOPHIL COUNT 0.4 K/uL (0-0.3); HEMATOCRIT 24.7 % (38.0-50.0); HEMOGLOBIN 8.3 G/DL (12.5-16.6); IMMATURE GRANULOCYTE (%) 0.4 % (0.0-0.7); LYMPHOCYTE (%) 20.4 % (15-42); LYMPHOCYTE COUNT 1.5 K/uL (1.0-2.8); MCH 31.6 PG (29.0-34.0); MCHC 33.6 G/DL (30.0-36.0); MCV 93.9 FL (86-99); MONOCYTE (%) 10.2 % (3-12); MONOCYTE COUNT 0.7 K/uL (0-0.8); NEUTROPHIL (%) 62.5 % (45-76); NEUTROPHIL COUNT 4.6 K/uL (1.8-6.4); PLATELET COUNT 330 K/uL (156-360); RBC DIS.WIDTH-CV 14.8 % (11.8-14.6); RBC DIS.WIDTH-SD 51.6 % (39-53); RED BLOOD COUNT 2.63 M/uL (4.00-5.50); WHITE BLOOD COUNT 7.3 K/uL (4.1-10.2)
[2018-06-02 06:29] LABS: CHLORIDE 107 MEQ/L (99-109); CREATININE 4.1 MG/DL (0.6-1.3); GFR ESTIMATE (CALCULATED) 16 mL/min/ (58.99-99999); GLUCOSE 167 mg/dL (70-99); POTASSIUM 4.5 MEQ/L (3.7-5.4); SODIUM 143 MEQ/L (136-147); UREA NITROGEN (BUN) 93 mg/dL (9-23)
[2018-06-02 07:30] VITALS: BP 123/74
[2018-06-02 15:13] VITALS: BP 120/68
[2018-06-02 23:06] VITALS: BP 133/80
[2018-06-03 06:26] LABS: HEMATOCRIT 26.3 % (38.0-50.0); HEMOGLOBIN 8.9 G/DL (12.5-16.6); MCH 31.4 PG (29.0-34.0); MCHC 33.8 G/DL (30.0-36.0); MCV 92.9 FL (86-99); PLATELET COUNT 392 K/uL (156-360); RBC DIS.WIDTH-CV 14.6 % (11.8-14.6); RBC DIS.WIDTH-SD 50.1 % (39-53); RED BLOOD COUNT 2.83 M/uL (4.00-5.50); WHITE BLOOD COUNT 7.4 K/uL (4.1-10.2)
[2018-06-03 06:48] LABS: ALBUMIN 3.5 G/DL (3.2-4.8); CHLORIDE 105 MEQ/L (99-109); CREATININE 3.8 MG/DL (0.6-1.3); GFR ESTIMATE (CALCULATED) 17 mL/min/ (58.99-99999); PHOSPHORUS 6.4 mg/dL (2.5-4.9); POTASSIUM 4.4 MEQ/L (3.7-5.4); SODIUM 144 MEQ/L (136-147); UREA NITROGEN (BUN) 93 mg/dL (9-23)
[2018-06-03 06:49] LABS: GLUCOSE 108 mg/dL (70-99)
[2018-06-03 07:30] VITALS: BP 118/74
[2018-06-03 15:36] VITALS: BP 133/83
[2018-06-03 16:18] LABS: NUMBER OF MARKERS 24; SPECIMEN TYPE BONE MARROW; SPECIMEN VIABILITY 94
[2018-06-03 22:35] VITALS: BP 131/69
[2018-06-04 06:33] LABS: HEMATOCRIT 25.4 % (38.0-50.0); HEMOGLOBIN 8.4 G/DL (12.5-16.6); MCH 31.1 PG (29.0-34.0); MCHC 33.1 G/DL (30.0-36.0); MCV 94.1 FL (86-99); PLATELET COUNT 375 K/uL (156-360); RBC DIS.WIDTH-CV 14.6 % (11.8-14.6); RBC DIS.WIDTH-SD 50.4 % (39-53); WHITE BLOOD COUNT 7.5 K/uL (4.1-10.2)
[2018-06-04 06:43] LABS: ALBUMIN 3.2 G/DL (3.2-4.8); CHLORIDE 110 MEQ/L (99-109); CREATININE 3.6 MG/DL (0.6-1.3); GFR ESTIMATE (CALCULATED) 19 mL/min/ (58.99-99999); GLUCOSE 93 mg/dL (70-99); PHOSPHORUS 6.5 mg/dL (2.5-4.9); POTASSIUM 4.8 MEQ/L (3.7-5.4); SODIUM 147 MEQ/L (136-147); UREA NITROGEN (BUN) 88 mg/dL (9-23)
[2018-06-04 07:11] VITALS: BP 140/77
[2018-06-04 16:34] VITALS: BP 134/75
[2018-06-04 23:44] VITALS: BP 147/80
[2018-06-05 05:38] LABS: CHLORIDE 111 MEQ/L (99-109); CREATININE 3.3 MG/DL (0.6-1.3); GFR ESTIMATE (CALCULATED) 20 mL/min/ (58.99-99999); GLUCOSE 112 mg/dL (70-99); POTASSIUM 4.2 MEQ/L (3.7-5.4); SODIUM 146 MEQ/L (136-147); UREA NITROGEN (BUN) 84 mg/dL (9-23)
[2018-06-05 07:10] VITALS: BP 123/64
[2018-06-05] MEDS ORDERED: DUONEB 2.5-0.5 M3 ML AEROSOL (11:07)
[2018-06-05] MEDS ORDERED: LEVEMIR100 UNIT/2 SC ×2 (11:11)
[2018-06-05] MEDS ORDERED: BUMETANIDE1 MG PO (11:12)
[2018-06-05] MEDS ORDERED: CIPRO500 MG PO (11:14)
[2018-06-05] MEDS ORDERED: TIZANIDINE HCL4 MG PO (11:14)
[2018-06-05] MEDS ORDERED: TRAMADOL HCL50 MG PO (11:17)
[2018-06-05] MEDS ORDERED: FENTANYL1 EAC5 TD (11:17)
[2018-06-05 12:32] LABS: ALBUMIN 3.06 G/DL (3.6-4.9); BETA-GLOBULIN 0.84 G/DL (0.65-1.15)
== END 2018-06-05 14:01 | DRG 194 ==
LOC: EME 08:10 → ENRESERV 09:39 → EDOF 10:07 → 5EAST 10:07 → ENRESERV 10:28 → 5EAST 11:40
PROVIDERS: Emergency Medicine; Family Medicine; Internal Medicine Hematology & Oncology; Internal Medicine Nephrology
PROC: 07DS3ZX Extraction of Vertebral Bone Marrow, Percutaneous Approach, Diagnostic (ICD-10-PCS; principal; 2018-05-31)
DX: J18.9 Pneumonia, unspecified organism (principal); J44.0 Chronic obstructive pulmonary disease with (acute) lower respiratory infection; N17.9 Acute kidney failure, unspecified; M62.82 Rhabdomyolysis; N39.0 Urinary tract infection, site not specified; R09.02 Hypoxemia; I12.9 Hypertensive chronic kidney disease with stage 1 through stage 4 chronic kidney disease, or unspecified chronic kidney disease; N18.4 Chronic kidney disease, stage 4 (severe); E11.622 Type 2 diabetes mellitus with other skin ulcer; L97.919 Non-pressure chronic ulcer of unspecified part of right lower leg with unspecified severity; L97.929 Non-pressure chronic ulcer of unspecified part of left lower leg with unspecified severity; E11.22 Type 2 diabetes mellitus with diabetic chronic kidney disease; R60.1 Generalized edema; D63.1 Anemia in chronic kidney disease; E27.9 Disorder of adrenal gland, unspecified; G40.909 Epilepsy, unspecified, not intractable, without status epilepticus; E78.5 Hyperlipidemia, unspecified; F31.9 Bipolar disorder, unspecified; F41.8 Other specified anxiety disorders; G89.4 Chronic pain syndrome; F10.21 Alcohol dependence, in remission; B96.20 Unspecified Escherichia coli [E. coli] as the cause of diseases classified elsewhere; Z16.29 Resistance to other single specified antibiotic; F17.210 Nicotine dependence, cigarettes, uncomplicated; Z96.641 Presence of right artificial hip joint; E66.9 Obesity, unspecified; Z68.32 Body mass index [BMI] 32.0-32.9, adult; Z91.19 Patient's noncompliance with other medical treatment and regimen; Z79.4 Long term (current) use of insulin; Z79.82 Long term (current) use of aspirin
CPT/HCPCS: 71045; 71046; 74176; 77012; 80048; 80053; 80069; 80202; 81003; 82088 90; 82550; 82570; 82948; 83605; 83690; 83735; 83835 90; 83880; 83883 90; 84100; 84145 90; 84156; 84165; 84244 90; 84439; 84443; 84484; 84550; 85007; 85025; 85027; 85610; 85730; 86021 90; 86038; 86334; 87040; 87077; 87086; 87186; 89190; 93005; 94640; 94760; 94799; 99281; 99285; J1644; J1815; J1940; J2543; J3010; J3370; J7050

== ENCOUNTER 2018-06-13 14:39 | Inpatient (IN) | payer OTHER ==
[~2018-06-13] VITALS: Ht 170.2 cm; Wt 98.7 kg
[~2018-06-13 14:39] MED LIST changes: +ASPIR 8181 M1 PO; +BASAGLAR K100 UNIT/1 SC; +BUMETANIDE1 MG PO; +CIPRO500 MG PO; +DUONEB 2.5-0.5 M3 ML AEROSOL; +FENTANYL1 EAC5 TD; +FERROUS SULFAT325 MG PO; +FUROSEMIDE20 MG PO; +HUMALOG100 UNIT/1 SC; +LAMICTAL25 MG PO; +NEURONTIN800 MG PO; +OZEMPIC0.25 MG/0. SC; +TIZANIDINE HCL4 MG PO; +VITAMIN B-12500 MC5 SL
[2018-06-13 16:11] LABS: BASOPHIL (%) 0.9 % (0-1); BASOPHIL COUNT 0.1 K/uL (0-0.1); EOSINOPHIL (%) 4.8 % (0-5); EOSINOPHIL COUNT 0.5 K/uL (0-0.3); HEMATOCRIT 25.5 % (38.0-50.0); LYMPHOCYTE (%) 13.3 % (15-42); LYMPHOCYTE COUNT 1.4 K/uL (1.0-2.8); MCHC 35.3 G/DL (30.0-36.0); MCV 90.7 FL (86-99); MONOCYTE (%) 11.8 % (3-12); MONOCYTE COUNT 1.2 K/uL (0-0.8); NEUTROPHIL (%) 68.2 % (45-76); PLATELET COUNT 396 K/uL (156-360); RBC DIS.WIDTH-CV 14.2 % (11.8-14.6); RBC DIS.WIDTH-SD 47.5 % (39-53); RED BLOOD COUNT 2.81 M/uL (4.00-5.50); WHITE BLOOD COUNT 10.2 K/uL (4.1-10.2)
[2018-06-13 16:17] LABS: CARBON DIOXIDE (BICARBONATE) 21.5 MEQ/L (20-31)
[2018-06-13 16:21] LABS: ALBUMIN 3.7 g/dL (3.2-4.8)
[2018-06-13 16:22] LABS: CHLORIDE 105 mEq/L (99-109); POTASSIUM 3.2 mEq/L (3.7-5.4); SODIUM 139 mEq/L (136-147)
[2018-06-13 16:24] LABS: GLUCOSE 353 mg/dL (70-99); TOTAL PROTEIN 6.3 g/dL (6.4-8.3)
[2018-06-13 16:26] LABS: TOTAL BILIRUBIN 0.3 mg/dL (0.0-1.0)
[2018-06-13 16:27] LABS: ALKALINE PHOSPHATASE 137 IU/L (3-129)
[2018-06-13 16:28] LABS: CREATININE 3.8 mg/dL (0.6-1.3); GFR ESTIMATE (CALCULATED) 17 mL/min/ (58.99-99999)
[2018-06-13 16:30] LABS: AST (GOT) 12 IU/L (2-34)
[2018-06-13 16:31] LABS: ALT (GPT) 7 IU/L (3-49); LIPASE 177 U/L (1.0-51.0)
[2018-06-13 16:46] LABS: UREA NITROGEN (BUN) 109 mg/dL (9-23)
[2018-06-13 16:55] LABS: APPEARANCE CLEAR ((CLEAR)); BILIRUBIN NEGATIVE; BLOOD SMALL; COLOR YELLOW ((YELLOW)); GLUCOSE (STRIP) 50; KETONES NEGATIVE; LEUKOCYTES NEGATIVE; NITRITE NEGATIVE; PROTEIN (STRIP) NEGATIVE; SPECIFIC GRAVITY 1.012 (1.000-1.030); UROBILINOGEN 0.2 MG/DL (0.2-1.0)
[2018-06-13 17:00] LABS: BACTERIA RARE /HPF; EPITHELIAL CELLS NONE SEEN /HPF; HYALINE CASTS 0-5 /LPF; MUCUS NONE SEEN /LPF; UCUL ADDED? NO; WHITE BLOOD CELLS 0-5 /HPF (0-5)
[2018-06-13] MEDS ORDERED: BASAGLAR K100 UNIT/1 SC ×2 (21:34→21:35)
[2018-06-13] MEDS ORDERED: FUROSEMIDE20 MG PO (21:39)
[2018-06-13] MEDS ORDERED: OZEMPIC1 MG/0.75 SC (21:40)
[2018-06-13 22:11] LABS: CHLORIDE 112 mEq/L (99-109); POTASSIUM 3.4 mEq/L (3.7-5.4); SODIUM 142 mEq/L (136-147)
[2018-06-13 22:13] LABS: GLUCOSE 274 mg/dL (70-99)
[2018-06-13 22:17] LABS: CREATININE 3.4 mg/dL (0.6-1.3); GFR ESTIMATE (CALCULATED) 20 mL/min/ (58.99-99999); UREA NITROGEN (BUN) 98 mg/dL (9-23)
[2018-06-13 22:19] LABS: CARBOXY HGB 1.9 % (0-5); PCO2 34 mm Hg (35-45); PO2 68 mm Hg (80-100); pH 7.34 (7.35-7.45)
[2018-06-13 22:20] LABS: BASE EXCESS -6.8 mEq/L (-3 to +3); BICARBONATE 18.3 mEq/L (22-26); COMMENTS - BLOOD GASES C+A+; DEVICE ROOM AIR; METHEMOGLOBIN 0.4 % (0-1.5); SITE RR
[2018-06-13 22:42] LABS: CREATINE KINASE 213 IU/L (1-294)
[2018-06-13 23:48] VITALS: BP 135/73
[2018-06-14 01:02] LABS: TROP-I INTERPRETATION NEGATIVE; TROPONIN-I < 0.01 ng/mL (0.0-0.30)
[2018-06-14 03:55] VITALS: BP 138/72
[2018-06-14 05:49] LABS: HEMATOCRIT 24.9 % (38.0-50.0); HEMOGLOBIN 8.5 G/DL (12.5-16.6); MCH 31.5 PG (29.0-34.0); MCHC 34.1 G/DL (30.0-36.0); MCV 92.2 FL (86-99); PLATELET COUNT 399 K/uL (156-360); RBC DIS.WIDTH-CV 14.5 % (11.8-14.6); RBC DIS.WIDTH-SD 49.3 % (39-53); WHITE BLOOD COUNT 10.1 K/uL (4.1-10.2)
[2018-06-14 06:08] LABS: CHLORIDE 113 MEQ/L (99-109); GFR ESTIMATE (CALCULATED) 23 mL/min/ (58.99-99999); GLUCOSE 243 mg/dL (70-99); POTASSIUM 3.9 MEQ/L (3.7-5.4); SODIUM 143 MEQ/L (136-147); UREA NITROGEN (BUN) 86 mg/dL (9-23)
[2018-06-14 07:19] VITALS: BP 125/79
[2018-06-14 11:22] VITALS: BP 120/55
[2018-06-14 16:10] LABS: ABSOLUTE RETICULOCYTE CT. 0.04 M/uL (0.02-0.08); IMM.RETIC FRACTION 12.4 % (3-19); RETIC HGB EQUIVALENT 34.5 (28-36); RETICULOCYTE COUNT 1.6 % (0.5-1.8)
[2018-06-14 16:39] LABS: CHLORIDE 116 MEQ/L (99-109); CREATININE 2.7 MG/DL (0.6-1.3); GFR ESTIMATE (CALCULATED) 26 mL/min/ (58.99-99999); GLUCOSE 249 mg/dL (70-99); IRON 28 MCG/DL (35-150); POTASSIUM 3.7 MEQ/L (3.7-5.4); SODIUM 144 MEQ/L (136-147); UREA NITROGEN (BUN) 82 mg/dL (9-23)
[2018-06-14 16:52] LABS: FERRITIN 184 NG/ML (22-322)
[2018-06-14 16:54] VITALS: BP 108/75
[2018-06-14 16:57] LABS: FOLIC ACID (FOLATE) 10.8 NG/ML (5.0-22.0)
[2018-06-14 19:24] VITALS: BP 157/89
[2018-06-15] VITALS (8 sets, daily range): BP systolic 103–161; BP diastolic 57–89
[2018-06-15 06:39] LABS: HEMATOCRIT 25.1 % (38.0-50.0); HEMOGLOBIN 8.4 G/DL (12.5-16.6); MCH 31.1 PG (29.0-34.0); MCHC 33.5 G/DL (30.0-36.0); PLATELET COUNT 379 K/uL (156-360); RBC DIS.WIDTH-CV 14.6 % (11.8-14.6); RBC DIS.WIDTH-SD 50.1 % (39-53); WHITE BLOOD COUNT 9.2 K/uL (4.1-10.2)
[2018-06-15 06:59] LABS: CHLORIDE 117 MEQ/L (99-109); CREATININE 2.3 MG/DL (0.6-1.3); GFR ESTIMATE (CALCULATED) 31 mL/min/ (58.99-99999); GLUCOSE 145 mg/dL (70-99); MAGNESIUM 1.8 mg/dl (1.3-2.7); POTASSIUM 3.6 MEQ/L (3.7-5.4); SODIUM 143 MEQ/L (136-147); UREA NITROGEN (BUN) 67 mg/dL (9-23)
[2018-06-16 03:35] VITALS: BP 136/70
[2018-06-16 06:42] LABS: BASOPHIL (%) 1.2 % (0-1); BASOPHIL COUNT 0.1 K/uL (0-0.1); EOSINOPHIL (%) 4.1 % (0-5); EOSINOPHIL COUNT 0.3 K/uL (0-0.3); HEMATOCRIT 27.5 % (38.0-50.0); HEMOGLOBIN 9.2 G/DL (12.5-16.6); IMMATURE GRANULOCYTE (%) 0.6 % (0.0-0.7); LYMPHOCYTE (%) 21.6 % (15-42); LYMPHOCYTE COUNT 1.8 K/uL (1.0-2.8); MCH 31.3 PG (29.0-34.0); MCHC 33.5 G/DL (30.0-36.0); MCV 93.5 FL (86-99); MONOCYTE (%) 8.2 % (3-12); MONOCYTE COUNT 0.7 K/uL (0-0.8); NEUTROPHIL (%) 64.3 % (45-76); NEUTROPHIL COUNT 5.3 K/uL (1.8-6.4); PLATELET COUNT 408 K/uL (156-360); RBC DIS.WIDTH-CV 14.5 % (11.8-14.6); RBC DIS.WIDTH-SD 49.9 % (39-53); RED BLOOD COUNT 2.94 M/uL (4.00-5.50); WHITE BLOOD COUNT 8.3 K/uL (4.1-10.2)
[2018-06-16 07:00] LABS: CHLORIDE 118 MEQ/L (99-109); GFR ESTIMATE (CALCULATED) 37 mL/min/ (58.99-99999); GLUCOSE 138 mg/dL (70-99); MAGNESIUM 1.7 mg/dl (1.3-2.7); POTASSIUM 4.1 MEQ/L (3.7-5.4); SODIUM 149 MEQ/L (136-147); UREA NITROGEN (BUN) 52 mg/dL (9-23)
[2018-06-16 07:51] VITALS: BP 144/78
[2018-06-16 11:20] VITALS: BP 142/87
[2018-06-16 15:40] VITALS: BP 151/97
[2018-06-16 19:30] VITALS: BP 149/79
[2018-06-16 23:41] VITALS: BP 155/72
[2018-06-17 03:43] VITALS: BP 140/77
[2018-06-17 08:27] VITALS: BP 153/80
[2018-06-17 11:37] VITALS: BP 140/76
[2018-06-17] MEDS ORDERED: CEPHALEXIN500 MG PO (13:29)
[2018-06-17] MEDS ORDERED: TRAMADOL HCL50 MG PO (13:32)
[2018-06-17 16:28] VITALS: BP 143/76
== END 2018-06-17 16:38 | DRG 917 ==
LOC: EME 14:39 → EDOF 22:25 → 4EAST 22:25 → ENRESERV 22:26 → 4EAST 23:39 → ENRESERV 06-15 13:36 → CANRESERV 06-15 13:36 → ENRESERV 06-15 14:37 → 5SOUTH 06-15 15:17
PROVIDERS: Emergency Medicine; Hospitalist; Internal Medicine; Internal Medicine Nephrology
DX: T40.4X1A Poisoning by other synthetic narcotics, accidental (unintentional), initial encounter (principal); G92 Toxic encephalopathy; N17.9 Acute kidney failure, unspecified; L03.115 Cellulitis of right lower limb; L03.116 Cellulitis of left lower limb; I12.9 Hypertensive chronic kidney disease with stage 1 through stage 4 chronic kidney disease, or unspecified chronic kidney disease; N18.4 Chronic kidney disease, stage 4 (severe); E11.22 Type 2 diabetes mellitus with diabetic chronic kidney disease; E11.10 Type 2 diabetes mellitus with ketoacidosis without coma; E11.622 Type 2 diabetes mellitus with other skin ulcer; L97.929 Non-pressure chronic ulcer of unspecified part of left lower leg with unspecified severity; L97.919 Non-pressure chronic ulcer of unspecified part of right lower leg with unspecified severity; G40.909 Epilepsy, unspecified, not intractable, without status epilepticus; J44.1 Chronic obstructive pulmonary disease with (acute) exacerbation; E87.0 Hyperosmolality and hypernatremia; F05 Delirium due to known physiological condition; G89.4 Chronic pain syndrome; R26.9 Unspecified abnormalities of gait and mobility; T81.89XA Other complications of procedures, not elsewhere classified, initial encounter; B35.1 Tinea unguium; E66.01 Morbid (severe) obesity due to excess calories; Z68.41 Body mass index [BMI] 40.0-44.9, adult; E86.0 Dehydration; D50.9 Iron deficiency anemia, unspecified; R14.0 Abdominal distension (gaseous); K21.9 Gastro-esophageal reflux disease without esophagitis; I87.2 Venous insufficiency (chronic) (peripheral); R79.89 Other specified abnormal findings of blood chemistry; M87.9 Osteonecrosis, unspecified; F41.9 Anxiety disorder, unspecified; F31.9 Bipolar disorder, unspecified; F10.10 Alcohol abuse, uncomplicated; F11.20 Opioid dependence, uncomplicated; F19.10 Other psychoactive substance abuse, uncomplicated; F17.200 Nicotine dependence, unspecified, uncomplicated; Z79.4 Long term (current) use of insulin; Z91.19 Patient's noncompliance with other medical treatment and regimen; Z96.641 Presence of right artificial hip joint
CPT/HCPCS: 36600; 70450; 71045; 74176; 80048; 80048 91; 80053; 81003; 82010; 82140; 82272; 82436; 82550; 82607; 82728; 82746; 82803; 82948; 83540; 83605; 83690; 83735; 83930; 84133; 84300; 84484; 84550; 85025; 85027; 85046; 87040; 87070; 87075; 87205; 87641; 93005; 93970; 94799; 95819; 99281; 99285; J0690; J1644; J1815; J2543; J3370; J3480; J7030